=== PATIENT | female | born 1960 | race Caucasian/White ===

== ENCOUNTER 2020-06-25 00:24 | Outpatient (CLI) | payer BC, SELFPAY ==
[2020-06-25 19:34] LABS: SARS-CoV-2 RNA PCR Negative
== END 2020-06-25 00:25 | disposition home or self-care (01) ==
LOC: ANHCOVIDDT 00:24
PROVIDERS: PCP Family Medicine; Visit Provider Internal Medicine Gastroenterology
DX: Z01.812 Encounter for preprocedural laboratory examination (principal); Z20.828 Contact with and (suspected) exposure to other viral communicable diseases
CPT/HCPCS: 87635; C9803; U0003

== ENCOUNTER 2020-06-27 01:25 | Day surgery (SDC) | payer BC, SELFPAY ==
[2020-06-21 14:45] VITALS: BMI 23.6
--- NOTE | 2020-06-25 14:31 | WPDANESEPPF ---
Anes - Initial Pre Proc Eval Procedure: Operation Date: 06/27/20 09:30 Proposed Procedures p Esophagogastroduodenoscopy & Screening Colonoscopy - Noel Guardado MD Date/Time: 06/25/20 14:31 Surgeon: Noel Guardado MD Pre Op Diagnosis: neoplasm screening/ Dysphagia Patient Data Age: 60 Gender: F Height: 1.55 m Weight: 56.8 kg Allergies Allergy/AdvReac Type Severity Reaction Status Date / Time cevimeline Allergy Mild Asthma Verified 06/21/20 14:15 codeine Allergy Mild hallucinati Verified 06/21/20 14:15 on raloxifene AdvReac Mild Nausea Verified 06/21/20 14:15 Home Medications Medication Instructions Recorded Confirmed Type gabapentin 100 mg capsule 100 mg PO DAILY 10/06/19 06/21/20 History amlodipine 2.5 mg tablet 2.5 mg PO DAILY #90 tablet 01/09/20 06/21/20 Rx famotidine 40 mg tablet 40 mg PO BID #180 tablet 04/09/20 06/21/20 Rx imipramine HCl 10 mg tablet See Rx Instructions PO DAILY #120 05/24/20 06/21/20 Rx tablet lisinopril 2.5 mg tablet 5 mg PO DAILY #60 tablet 05/24/20 06/21/20 Rx meloxicam 15 mg PO DAILY PRN 06/21/20 06/21/20 History Patient hx anesthesia problems: none Family hx anesthesia problems: none PMFSH Past Medical History Medical History (Updated 06/25/20 @ 14:31 by Wicho Foreman DO) Asthma Atypical ductal hyperplasia of breast Endometriosis Eosinophilic esophagitis Fibromyalgia Hypertension Injury of left rotator cuff Neuropathy PONV (postoperative nausea and vomiting) Serrated adenoma of colon Social History Social History Smoking status: Never smoker Second hand tobacco smoke exposure: No Alcohol intake: current Anes - Eval Final PreProcedure Day of Procedure 06/25/20 14:31 Patient weight: normal Heart: regular rate and rhythm Lungs: clear to auscultation and normal air movement Airway: Mallampati scale class II Neurological: alert and oriented Last oral intake: >/= 8 hours ASA classification: III Emergent: no Anesthetic plan: proceed Anesthesia type and monitoring: general GIVS and standard monitoring Informed Consent: The patient's anesthetic plan and its attendant risks and benefits were discussed with the patient/family/POA. Questions were solicited and answers provided to the satisfaction of the patient/family/POA.
[2020-06-27 08:49] VITALS: BP 126/76; PULSE 88; RESP 16; TEMP 36.6; O2SAT 100; BMI 23.3
[2020-06-27] MEDS: LACTATED RINGERS 1,000 ML 150 ML IV CONT (09:01)
--- NOTE | 2020-06-27 09:18 | P.HP_ITS ---
History of Present Illness History of Present Illness Consent: Risks, benefits, and alternatives have been discussed and questions answered. Patient agrees to proceed with procedure. Chief complaint: neoplasm screening/ Dysphagia Narrative: Edyta Muhammad is a 60 year old W female Referred for gastroscopy and colonoscopy secondary to history of dysphagia he states this occurs approximately once a week with liquids or solids and points to the cervical region. He had a previous EGD 5 years ago there is suspicion for eosinophilic esophagitis but no significant eosinophilia recent exam. Heartburn is controlled with famotidine. She has not been on proton pump inhibitors in the past. She also has a history of connective tissue disorder. Sicca syndrome. Patient is also undergoing a colonoscopy for screening purposes. She has a history of serrated adenoma in the past however the last colonoscopy 5 years ago no polyps were visualized. There is no family history of colon polyps or colon cancer. [facility], LAT[facility] Past Medical History Medical History Asthma Atypical ductal hyperplasia of breast Endometriosis Eosinophilic esophagitis Fibromyalgia Hypertension Injury of left rotator cuff Neuropathy PONV (postoperative nausea and vomiting) Serrated adenoma of colon Social History Social History Smoking status: Never smoker Second hand tobacco smoke exposure: No Alcohol intake: current Meds Home Medications and Allergies Home Medications Medication Instructions Recorded Confirmed Type gabapentin 100 mg capsule 100 mg PO DAILY 10/06/19 06/21/20 History amlodipine 2.5 mg tablet 2.5 mg PO DAILY #90 tablet 01/09/20 06/21/20 Rx famotidine 40 mg tablet 40 mg PO BID #180 tablet 04/09/20 06/21/20 Rx imipramine HCl 10 mg tablet See Rx Instructions PO DAILY #120 05/24/20 06/21/20 Rx tablet lisinopril 2.5 mg tablet 5 mg PO DAILY #60 tablet 05/24/20 06/27/20 Rx meloxicam 15 mg PO DAILY PRN 06/21/20 06/27/20 History Allergies Allergy/AdvReac Type Severity Reaction Status Date / Time cevimeline Allergy Mild Asthma Verified 06/27/20 08:45 codeine Allergy Mild hallucinati Verified 06/27/20 08:45 on raloxifene AdvReac Mild Nausea Verified 06/27/20 08:45 Vital Signs Vital Signs - 24 hr 06/27/20 08:49 Temperature 36.6 C Pulse Rate 88 Respiratory Rate 16 Blood Pressure 126/76 Pulse Oximetry 100 Exam Const: Orientation/consciousness: patient oriented x3 Resp: Auscultation: clear to auscultation bilaterally Cardio: Rate: regular rate Rhythm: regular rhythm Heart sounds: no murmurs GI: GI Palp: Yes Soft to palpation, No Tenderness to palpation present (GI), Yes No hepatosplenomegaly present and No Palpable mass present Auscultation: normal bowel sounds Neuro: General: patient oriented x3 and no focal motor deficits Extrem: General: no pedal edema Assessment and Plan Additional Plan EGD for evaluation of dysphagia and screening colonoscopy secondary history of colonic polyps
[2020-06-27 10:35] VITALS: BP 115/81; PULSE 75; RESP 23; O2SAT 100
[2020-06-27 10:45] VITALS: BP 130/64; PULSE 79; RESP 16; O2SAT 100
[2020-06-27 10:55] VITALS: BP 121/70; PULSE 75; RESP 12; O2SAT 100
== END 2020-06-27 11:20 | disposition home or self-care (01) ==
PROVIDERS: PCP Family Medicine; Visit Provider Internal Medicine Gastroenterology
PROC: 0DJ08ZZ Inspection of Upper Intestinal Tract, Via Natural or Artificial Opening Endoscopic (ICD-10-PCS; CPT 43235; principal; 2020-06-27 09:30)
DX: Z12.11 Encounter for screening for malignant neoplasm of colon (principal); K57.30 Diverticulosis of large intestine without perforation or abscess without bleeding; K20.0 Eosinophilic esophagitis; K22.2 Esophageal obstruction; K44.9 Diaphragmatic hernia without obstruction or gangrene; Z86.010 Personal history of colon polyps; I10 Essential (primary) hypertension; J45.909 Unspecified asthma, uncomplicated; M79.7 Fibromyalgia; M35.00 Sjogren syndrome, unspecified; G62.9 Polyneuropathy, unspecified; Z79.899 Other long term (current) drug therapy
CPT/HCPCS: 43249; 43239; 45378; 88305; C1726; J2704; J7120

== ENCOUNTER → 2020-07-13 11:17 | Outpatient (CLI) | payer BC, SELFPAY ==
--- NOTE | ~2020-07-13 | MM_ITS ---
EXAMINATION: MM screening tamir BI w liban HISTORY: Screening TECHNIQUE: Craniocaudal and mediolateral oblique 3-D tomosynthesis images were obtained and synthetic 2-D images were generated. CAD analysis was submitted and interpreted. COMPARISON: No prior mammogram is available for comparison at this institution. BREAST PARENCHYMAL COMPOSITION: There are scattered areas of fibroglandular density. FINDINGS: The right breast is stable without evidence for malignancy. There are developing asymmetrie s in the left breast. IMPRESSION: 1. Developing left breast asymmetries. 2. Additional mammographic views and possible breast ultrasound are recommended. BI-RADS Category 0: Incomplete: Needs additional imaging evaluation. Reviewed, dictated and finalized at location A. IMPRESSION: 1. Developing left breast asymmetries. 2. Additional mammographic views and possible breast ultrasound are recommended . BI-RADS Category 0: Incomplete: Needs additional imaging evaluation.
== END ==
PROVIDERS: PCP Family Medicine; Visit Provider Family Medicine
DX: Z12.31 Encounter for screening mammogram for malignant neoplasm of breast (principal); R92.8 Other abnormal and inconclusive findings on diagnostic imaging of breast
CPT/HCPCS: 77063; 77067

== ENCOUNTER → 2020-07-13 11:51 | Outpatient (CLI) | payer BC, SELFPAY ==
--- NOTE | ~2020-07-13 | XR_ITS ---
EXAMINATION: XR lumbar spine min 4V EXAM DATE: 07/13/2020 13:19 INDICATION: Chronic low back pain. Right leg numbness for one month. TECHNIQUE: Lumber spine frontal, lateral, bilateral oblique projections. Coned down frontal and lat eral L5-S1 lumbar projections for interpretation. There is no prior study for comparison. FINDINGS: The vertebral bodies are aligned in the AP dimension. Vertebral body and disc heights are w ell-maintained. There is mild lumbar facet arthropathy. There are no acute fractures identified. No e ndplate erosive change. No spondylolysis. Sacrum, sacroiliac joints, sacral arcuate lines are intact. There are no bony erosions identified. IMPRESSION: Mild lumbar facet arthropathy. Reviewed, dictated and finalized at location A.
--- NOTE | ~2020-07-13 | XR_ITS ---
EXAMINATION: XR sacrum coccyx min 2V EXAM DATE: 07/13/2020 13:19 INDICATION: Chronic low back pain with right-sided radiculopathy. TECHNIQUE: Frontal and lateral projections of the sacrum and coccyx. There is no prior study for co mparison. FINDINGS: Sacrum, sacroiliac joints, sacral arcuate lines are intact. Symmetric sacroiliac joints wi thout erosion or fusion. The soft tissue is unremarkable. IMPRESSION: Unremarkable sacrococcygeal x-ray exam. Reviewed, dictated and finalized at location G.
== END ==
PROVIDERS: PCP Family Medicine; Visit Provider Chiropractor
DX: M54.5 Low back pain (principal)
CPT/HCPCS: 72110; 72220

== ENCOUNTER → 2020-07-31 14:16 | Outpatient (CLI) | payer BC, SELFPAY ==
--- NOTE | ~2020-07-31 | MMUS_ITS ---
EXAMINATION: MM diagnostic mammo unilat LT, US breast LT limited HISTORY: Focal asymmetry of the left breast on screening mammogram TECHNIQUE: Additional 3-D tomosynthesis images of the left breast were performed and synthetic 2-D im ages were generated. CAD analysis was submitted and interpreted. High resolution limited left breast ultrasound was performed. COMPARISON: 07/13/2020, 04/04/2019, 02/22/2018, 02/18/2017 FINDINGS: MAMMOGRAPHIC FINDINGS: There is a 6 mm oval, obscured, equal density mass in the anterior/middle third of the outer breast a t the 3:00 location 2 cm from the nipple. ULTRASOUND: There is a 6 mm x 3 mm oval, circumscribed, parallel, hypoechoic mass with no definite posterior feat ures or internal vascularity at the 3:00 location 1 cm from the nipple. There is an adjacent 5 mm x 3 mm oval, circumscribed, parallel, hypoechoic mass with angular margins, internal vascularity, and no posterior features. IMPRESSION: 1. Two masses of the left breast within 3 mm of each other at the 3:00 location. 2. Given their proximity, recommend biopsy of the mass with internal vascularity detected. BI-RADS category 4, suspicious findings. Reviewed, dictated and finalized at location A. IMPRESSION: 1. Two masses of the left breast within 3 mm of each other at the 3:00 location . 2. Given their proximity, recommend biopsy of the mass with internal vascularit y detected. BI-RADS category 4, suspicious findings.
== END ==
PROVIDERS: PCP Family Medicine; Visit Provider Family Medicine
DX: R92.8 Other abnormal and inconclusive findings on diagnostic imaging of breast (principal)
CPT/HCPCS: 76642; 77065

== ENCOUNTER 2020-08-06 10:40 | Outpatient (CLI) | payer BC, SELFPAY ==
--- NOTE | ~2020-08-06 | MMUS_ITS ---
US breast biopsy LT w image, MM post biopsy invasive LT 08/06/2020 11:47 (accession [id number]), 08/06/2020 11:51 (accession [id number]) EXAMINATION: US GUIDED NEEDLE BIOPSY WITH VACUUM ASSISTANCE DATE: 08/06/2020 11:52 CDT INDICATION: Left breast mass identified on recent examination. Ultrasound-guided core biopsy is requ ested to evaluate for malignancy. TECHNIQUE AND FINDINGS: The risks and potential benefits of the procedure were discussed with the patient, and written inform ed consent was obtained. After sterile preparation of the left breast, 1% lidocaine was utilized for local anesthesia. 1% lidocaine with epinephrine was used for deep anesthesia. A 10G vacuum-assisted biopsy gun needle was advanced through to the outer edge of the region of inter est from a superior lateral approach utilizing sonographic guidance. A total of three tissue core sa mples were obtained through the lesion. An Inrad tissue marker clip was then placed at the biopsy si te. Hemostasis was achieved. The patient tolerated procedure well and there was no evidence of immediate complication. The patien t was given verbal instructions partly is from the department. Left breast mammograms to document ti ssue marker clip placement. The tissue samples were submitted to surgical pathology for histologic an alysis.] IMPRESSION: 1. Successful ultrasound-guided vacuum-assisted biopsy of left breast mass in the upper outer quadra nt with tissue marker placement. Please refer to pathology report for histologic analysis. Reviewed, dictated and finalized at location A. IMPRESSION: 1. Successful ultrasound-guided vacuum-assisted biopsy of left breast mass in the upper outer quadrant with tissue marker placement. Please refer to patholog y report for histologic analysis.
== END 2020-08-06 10:41 | disposition home or self-care (01) ==
PROVIDERS: PCP Family Medicine; Visit Provider Family Medicine
DX: R92.8 Other abnormal and inconclusive findings on diagnostic imaging of breast (principal); N63.21 Unspecified lump in the left breast, upper outer quadrant; N64.89 Other specified disorders of breast
CPT/HCPCS: 19083; 88305; 88342

== ENCOUNTER 2021-04-16 17:31 | Emergency (ER) | payer BC, SELFPAY ==
[2021-04-16 17:35] VITALS: BP 126/77; PULSE 82; RESP 12; TEMP 36.4; O2SAT 100
--- NOTE | 2021-04-16 18:23 | ED.GENADULT ---
HPI - General Adult General Chief complaint: Shortness of Breath/Dyspnea Stated complaint: sob Time Seen by Provider: 04/16/21 18:23 Source: patient and RN notes reviewed Mode of arrival: ambulatory Limitations: no limitations History of Present Illness HPI narrative: 60-year-old female presents with complains of asthma attack and shortness of breath this morning at 02:00AM. Old Ventolin inhaler (from 2017) with relief. Denies any further episodes since initial episode. Denies cough and chest congestion. No rhinorrhea and nasal congestion. Denies sore throat. No high fevers, drooling, neck or throat swelling. No chest pain. No exacerbation factors. Denies nausea, vomiting, and abdominal pain. Tolerating liquids well. Remains active. The patient reports she was diagnosed with COVID-20 September 2020. The patient reports she is not waiting for the results of a COVID-19 lab test.? The patient reports she does not have chills, weakness, or fatigue. The patient reports she does not have any loss of taste or smell and diarrhea. Denies recent traveling.? Denies concerns for COVID-19 or exposures.? At this time, the patient is not suspected of having COVID-19. Some parts of this dictation were generated by voice recognition software and may contain typographical and/or grammatical inaccuracies. Related Data Home Medications Medication Instructions Recorded Confirmed meloxicam 15 mg PO DAILY PRN 06/21/20 04/16/21 Allergies Allergy/AdvReac Type Severity Reaction Status Date / Time cevimeline Allergy Mild Asthma Verified 06/27/20 08:45 codeine Allergy Mild hallucinati Verified 06/27/20 08:45 on raloxifene AdvReac Mild Nausea Verified 06/27/20 08:45 Review of Systems Review of Systems: Narrative: CONSTITUTIONAL: Denies fever, chills, sweats. EYES: Denies visual changes, redness, discharge. ENT: Denies rhinorrhea, congestion, sore throat, otalgia. CARDIOVASCULAR: Denies chest pain, palpitations, edema. RESPIRATORY: Denies cough. Complains of wheezing, dyspnea. GASTROINTESTINAL: Denies abdominal pain, nausea, vomiting, diarrhea. GENITOURINARY: Denies dysuria, hematuria, abnormal discharge. SKIN: Denies rash or itching. MUSCULOSKELETAL: Denies acute back pain, joint pain, or myalgia. NEUROLOGIC: Denies numbness or focal weakness. PSYCHIATRIC: Denies anxiety or depression. All systems reviewed & are unremarkable except as noted in HPI and below. [facility] Past Medical History Medical History (Updated 04/16/21 @ 19:32 by JOHNATHAN Sam) Asthma Atypical ductal hyperplasia of breast COVID-19 Depression Endometriosis Eosinophilic esophagitis Fibroadenosis of breast Fibromyalgia Hx of migraines Hypertension Injury of left rotator cuff Neuropathy Orthostasis PONV (postoperative nausea and vomiting) Schatzki's ring Serrated adenoma of colon Sicca syndrome Surgical History Surgical History (Updated 04/16/21 @ 19:32 by JOHNATHAN Sam) History of carpal tunnel surgery History of removal of cyst 2003 Bronchogenic cyst removed S/P dilatation of esophageal stricture Family History Family History Father Hypertension Family history of diabetes mellitus in first degree relative Patient's father is , Onset Age: 93 Diabetes mellitus Mother Hypertension Family history of mental disorder Patient's mother is , Onset Age: 89 Family history of dementia Family history of osteoarthritis Sibling Depression Hypertension Grandparent Diabetes mellitus Family history of malignant neoplasm Other Family history of malignant neoplasm of uterus Social History Social History (Updated 04/16/21 @ 19:27 by JOHNATHAN Sam) Smoking status: Never smoker Tobacco type: cigarettes Second hand tobacco smoke exposure: No Alcohol intake: former Alcohol use details: Edyta reports quitting alcohol intake
== END 2021-04-16 19:05 | disposition home or self-care (01) ==
PROVIDERS: Emergency Provider Nurse Practitioner Family; PCP Family Medicine
DX: J45.20 Mild intermittent asthma, uncomplicated (principal); Z86.16 Personal history of COVID-19; N80.9 Endometriosis, unspecified; K20.0 Eosinophilic esophagitis; M79.7 Fibromyalgia; I10 Essential (primary) hypertension; M35.00 Sjogren syndrome, unspecified
CPT/HCPCS: 99213; G0463

== ENCOUNTER → 2021-07-25 09:15 | Outpatient (CLI) | payer BC, SELFPAY ==
--- NOTE | ~2021-07-25 | MM_ITS ---
EXAMINATION: MM diagnostic tamir BI w liban HISTORY: Recent benign left breast biopsy. TECHNIQUE: ML, MLO and craniocaudal 3-D tomosynthesis images of both breasts were performed [facility]. CAD analysis was submitted and interpreted. COMPARISON: 07/31/2020 diagnostic left mammogram and limited left breast ultrasound 07/13/2020, 623/2018, 02/22/2018, 02/18/2017bilateral digital screening mammogram examinations BREAST PARENCHYMAL COMPOSITION: The breasts are heterogeneously dense, which may obscure small masses . FINDINGS: Surgical clips are noted on the right. Biopsy marker is noted on left. History of bilateral benign breast biopsies. No suspicious mass or architectural distortion, malignant calcification, skin thickening or retractio n or significant new or developing density is detected. IMPRESSION: 1. No mammographic evidence of malignancy 2. Routine mammographic screening is recommended. BI-RADS Category 2: Benign finding(s). Reviewed, dictated and finalized at location A.
== END ==
PROVIDERS: PCP Family Medicine; Visit Provider Family Medicine
DX: N60.99 Unspecified benign mammary dysplasia of unspecified breast (principal); R92.2 Inconclusive mammogram
CPT/HCPCS: 77062; 77066; G0279

== ENCOUNTER → 2022-06-17 02:35 | Outpatient (CLI) | payer BC, SELFPAY ==
[2022-06-17 11:04] LABS: SARS-CoV-2 RNA PCR Positive
== END ==
PROVIDERS: PCP Family Medicine; Visit Provider Family Medicine
DX: U07.1 COVID-19 (principal)
CPT/HCPCS: C9803; U0003; U0005

== ENCOUNTER 2022-07-11 09:10 | Outpatient (CLI) | payer BC, SELFPAY ==
--- NOTE | ~2022-07-11 | DEXA_ITS ---
Bone Density Report Name: JASPER DEWITT Age: 62 Sex: Female Ethnicity: White Date of : 1960 Indication: postmenopausal; screening for osteoporosis; asthma or emphysema; Referring Provider: ELÍAS PADRON Study: Bone densitometry was performed. Exam Date: July 11, 2022 Accession number: [id number] Bone Density: Region BMD T-score Z-score Classification AP Spine(L1-L4) 0.927 -1.1 0.4 Osteopenia Femoral Neck (Left) 0.721 -1.2 0.2 Osteopenia Total Hip (Left) 0.925 -0.1 0.9 Normal Femoral Neck (Right) 0.766 -0.7 0.6 Normal Total Hip (Right) 0.967 0.2 1.2 Normal Total Hip Mean 0.946 0.1 1.1 Normal World Health Organization criteria for BMD impression classify patients as: Normal (T-score at or above -1.0), Osteopenia (T-score between -1.0 and -2.5), or Osteoporosis (T-score at or below -2.5). 10-year Fracture Risk(1): Major Osteoporotic Fracture 6.7% Hip Fracture 0.5% Reported Risk Factors: [place] (), Neck BMD=0.721, BMI=20.7 (1) FRAX(R) Version 3.08. Fracture probability calculated for an untreated patient. Fracture probability may be lower if the patient has received treatment. Clinical Information Provided by Patient: Has used the following medications: Calcium Has the following medical conditions: Asthma or Emphysema Patient maximum height was 62 Menopause Age: 49 Drinks caffeinated beverages Onset of menses at age 13 Number of children 3 Impression: The patient has low bone mass, based on the Left Femoral Neck T-score. The patient has an estimated ten-year risk of hip fracture of 0.5% and an estimated ten-year risk of major fracture of 6.7%, based on the WHO FRAX algorithm. Discussion: BONE DENSITY IS LOW AT ONE OR MORE SKELETAL SITES. This patient's lowest T-score is low at one or more skeletal sites. It meets the World Health Organization's (WHO) criteria for ?low bone mass? (T-score between -1.0 and -2.5). The patient's 10-year risk of fracture as calculated by FRAX is less than the threshold where pharmacological therapy is recommended by the National Osteoporosis Foundation (NOF). However, all treatment decisions require clinical judgment and consideration of individual patient factors, including patient preferences, comorbidities, previous drug use, risk factors not captured in the FRAX model (e.g., frailty, falls, vitamin D deficiency, increased bone turnover, interval significant decline in bone density) and possible under or overestimation of fracture risk by FRAX. The patient should follow a healthful lifestyle (good nutrition with adequate calcium and vitamin D, and appropriate weight-bearing exercise). Follow-Up: Consider repeating this study in 2 to 3 years to reassess this patient's status, or sooner if there is some new clinical
== END 2022-07-11 09:11 | disposition home or self-care (01) ==
LOC: ANHIMG 09:11
PROVIDERS: PCP Family Medicine; Visit Provider Family Medicine
DX: Z13.820 Encounter for screening for osteoporosis (principal); Z78.0 Asymptomatic menopausal state; M85.88 Other specified disorders of bone density and structure, other site; M85.852 Other specified disorders of bone density and structure, left thigh
CPT/HCPCS: 77080

== ENCOUNTER → 2022-09-23 13:47 | Outpatient (CLI) | payer BC, SELFPAY ==
--- NOTE | ~2022-09-23 | MM_ITS ---
EXAMINATION: MM screening tamir BI w liban HISTORY: Screening mammogram TECHNIQUE: Craniocaudal and mediolateral oblique 3-D tomosynthesis images were obtained and synthetic 2-D images were generated. CAD analysis was submitted and interpreted. COMPARISON: 07/25/2021 bilateral diagnostic mammography 08/06/2020 left ultrasound guided biopsy 07/31/2020 diagnostic left mammogram and limited left breast ultrasound 07/13/2020, 04/04/2019, 02/22/2018 bilateral screening mammogram examinations BREAST PARENCHYMAL COMPOSITION: The breasts are heterogeneously dense, which may obscure small masses . FINDINGS: Multiple surgical clips are noted on the right from prior reportedly benign biopsy. Biopsy marker in the outer mid left breast; reported benign left breast biopsy on 08/06/2020. There is no evidence of suspicious mass, calcification, or architectural distortion to suggest malig betty in either breast. There has been no suspicious interval change. IMPRESSION: 1. No mammographic evidence of malignancy. 2. Recommend routine screening mammography in one year. BI-RADS Category 1: Negative Reviewed, dictated and finalized at location A. O FINISH PHOTOGRAPHER
== END ==
PROVIDERS: PCP Family Medicine; Visit Provider Physician Assistant
DX: Z12.31 Encounter for screening mammogram for malignant neoplasm of breast (principal)
CPT/HCPCS: 77063; 77067

== ENCOUNTER → 2023-10-13 10:58 | Outpatient (CLI) | payer BC, SELFPAY ==
--- NOTE | ~2023-10-13 | MM_ITS ---
EXAMINATION: MM screening tamir BI w liban HISTORY: Screening TECHNIQUE: Craniocaudal and mediolateral oblique 3-D tomosynthesis images were obtained and synthetic 2-D images were generated. CAD analysis was submitted and interpreted. COMPARISON: Comparison to multiple prior studies sequentially, with oldest reviewed study dated 12/2018. BREAST PARENCHYMAL COMPOSITION: Breast composed of scattered areas of fibroglandular density FINDINGS: There are biopsy changes in both breasts consistent with previous benign bilateral breast b iopsies. There is no evidence of suspicious mass, calcification, or architectural distortion to sugge st malignancy in either breast. There has been no suspicious interval change. IMPRESSION: 1. No mammographic evidence of malignancy. 2. Recommend routine screening mammography in one year. BI-RADS Category 1: Negative Reviewed, dictated and finalized at location A. ER TECHNICIAN
== END ==
PROVIDERS: PCP Family Medicine; Visit Provider Family Medicine
DX: Z12.31 Encounter for screening mammogram for malignant neoplasm of breast (principal)
CPT/HCPCS: 77063; 77067

== ENCOUNTER 2024-08-09 13:26 | Outpatient (CLI) | payer BC, SELFPAY ==
[2024-08-16 07:39] LABS: XViral Resp Rapid Cult w/Reflx Negative
== END 2024-08-09 13:27 | disposition home or self-care (01) ==
LOC: ANHGOSHLAB 13:28
PROVIDERS: PCP Family Medicine; Visit Provider Nurse Practitioner Family
DX: R05.9 Cough, unspecified (principal)
CPT/HCPCS: 87254

== ENCOUNTER 2024-09-20 08:36 | Outpatient (CLI) | payer BC, SELFPAY ==
--- NOTE | ~2024-09-20 | MM_ITS ---
EXAMINATION: MM screening tamir BI w liban HISTORY: Screening mammogram TECHNIQUE: Craniocaudal and mediolateral oblique 3-D tomosynthesis images were obtained and synthetic 2-D images were generated. CAD analysis was submitted and interpreted. COMPARISON: 10/13/2023, 09/23/2022, 07/25/2021 BREAST PARENCHYMAL COMPOSITION:Dense: The breasts are heterogeneously dense, which may obscure small masses. FINDINGS: No suspicious mass, calcification, or architectural distortion are identified in either nitin ast to suggest malignancy. There has been no suspicious interval change. IMPRESSION: No mammographic evidence of malignancy. Recommend routine screening mammography in one year. BI-RADS Category 1: Negative Reviewed, dictated and finalized at location . GE OVER
== END 2024-09-20 08:37 | disposition home or self-care (01) ==
LOC: MICIMG 08:36
PROVIDERS: PCP Family Medicine; Visit Provider Family Medicine
DX: Z12.31 Encounter for screening mammogram for malignant neoplasm of breast (principal)
CPT/HCPCS: 77063; 77067

== ENCOUNTER 2024-09-23 12:35 | Outpatient (CLI) | payer BC, SELFPAY ==
--- NOTE | ~2024-09-23 | CT_ITS ---
EXAMINATION: CT soft tiss nk chst ab pel w DATE: 09/23/2024 13:09 INDICATION: Abdominal distention (gaseous). TECHNIQUE: Computed tomography (CT) of the neck, chest, abdomen, and pelvis was performed with 100 mL Omnipaque 350 intravenous contrast. Automated exposure control and iterative reconstruction techniqu e were employed. The dose-length product was 1429.41 mGy-cm. COMPARISON: CT abdomen and pelvis 02/27/2015 FINDINGS: NECK CT: There are no pathologically enlarged lymph nodes. There is no visible plaque in the proximal internal carotid arteries. There is severe cervical spondylosis. There is a benign bone island in C7 vertebra l body. CHEST CT: There is mild scarring at the lung apices. There is mild atelectasis in right middle lobe. No pleural effusion. The heart size is normal. No pericardial effusion. There is mild thoracic spondylosis. ABDOMEN/PELVIS CT: The liver, gallbladder, spleen, pancreas, adrenal glands, and kidneys are normal. 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 The bladder is distended. There are no dilated loops of bowel. There is a large volume stool in the c olon. The appendix is normal. There are no pathologically enlarged lymph nodes. There is no free intr aperitoneal fluid. There are 2.2 cm and 2.1 cm cysts in the left adnexa, likely benign. There is linsey re lumbar spondylosis. IMPRESSION: 1. Large volume of stool in the colon. Reviewed, dictated and finalized at location A. ONNEL SECURITY SPECIALIST
[2024-09-23 13:00] LABS: Estimated Glomerular Filt Rate > 60
== END 2024-09-23 12:36 | disposition home or self-care (01) ==
PROVIDERS: PCP Family Medicine; Visit Provider Nurse Practitioner Family
DX: K56.41 Fecal impaction (principal); R14.0 Abdominal distension (gaseous)
CPT/HCPCS: 70491; 71260; 74177; Q9967

== ENCOUNTER 2024-10-13 01:47 | Day surgery (SDC) | payer BC, SELFPAY ==
[2024-10-03 16:09] VITALS: BMI 22.4
[2024-10-13 06:56] VITALS: BP 146/88; PULSE 81; RESP 18; TEMP 36.2; O2SAT 100
[2024-10-13] MEDS: LACTATED RINGERS 1,000 ML 150 ML IV CONT (07:09)
--- NOTE | 2024-10-13 07:51 | WPDANESEPPF ---
Anes - Initial Pre Proc Eval Procedure: Operation Date: 10/13/24 08:00 Proposed Procedures p Esophagogastroduodenoscopy & Colonoscopy - Sang Islas MD Date/Time: 10/13/24 07:51 Surgeon: Sang Islas MD Pre Op Diagnosis: HX of colon polyps, dysphagia Patient Data Age: 64 Gender: F Height: 1.55 m Weight: 52.6 kg Last Vital Signs Temp 97.2 F L 10/13/24 06:56 Pulse 81 10/13/24 06:56 Resp 18 10/13/24 06:56 BP 146/88 H 10/13/24 06:56 Pulse Ox 100 10/13/24 06:56 O2 Del Method Room Air 10/13/24 06:56 Allergies Allergy/AdvReac Type Severity Reaction Status Date / Time cevimeline Allergy Mild Asthma Verified 10/13/24 06:54 codeine AdvReac Mild hallucinati Verified 10/13/24 06:54 on raloxifene AdvReac Mild Nausea Verified 10/13/24 06:54 Home Medications ?Medication ?Instructions ?Recorded ?Confirmed ?Type meloxicam 15 mg tablet 15 mg PO DAILY PRN Pain, Mild 06/21/20 10/13/24 History valacyclovir 1 gram tablet 2,000 mg (2 x 1 gram) PO Q12H #24 09/29/22 10/03/24 Rx (Valtrex) tabs pilocarpine HCl 5 mg tablet 5 mg PO DAILY PRN Dry Mouth 11/13/22 10/13/24 History amlodipine 2.5 mg tablet See Rx Instructions .Route 10/29/23 10/03/24 Rx .COMPLEX #90 tabs pantoprazole 40 mg tablet,delayed See Rx Instructions .Route 10/29/23 10/13/24 Rx release .COMPLEX #90 tabs imipramine HCl 10 mg tablet See Rx Instructions .Route 02/25/24 10/13/24 Rx .COMPLEX #360 tabs gabapentin 100 mg capsule 300 mg (3 x 100 mg) PO DAILY #90 05/03/24 10/13/24 Rx caps lisinopril 2.5 mg tablet 2.5 mg PO DAILY #90 tabs 07/25/24 10/03/24 Rx albuterol sulfate 90 mcg/actuation See Rx Instructions .Route 08/11/24 10/13/24 Rx aerosol inhaler .COMPLEX ##8.5 Patient hx anesthesia problems: none Family hx anesthesia problems: none Results Review: All pre-operative results and documents have been reviewed as part of the pre-operative evaluation. [facility] Past Medical History Medical History Asthma Atypical ductal hyperplasia of breast COVID-19 Depression Endometriosis Eosinophilic esophagitis Fibroadenosis of breast Fibromyalgia Hx of migraines Hypertension Injury of left rotator cuff Neuropathy Orthostasis Osteopenia after menopause PONV (postoperative nausea and vomiting) Schatzki's ring Serrated adenoma of colon Sicca syndrome Surgical History Surgical History History of carpal tunnel surgery History of removal of cyst 2003 Bronchogenic cyst removed S/P dilatation of esophageal stricture Family History Family History Father , age 93 Hypertension Diabetes mellitus Mother , age 89 Hypertension Family history of mental disorder Family history of dementia Family history of osteoarthritis Arthritis Sibling Depression Hypertension Sleep apnea Grandparent Diabetes mellitus Family history of malignant neoplasm Other Family history of malignant neoplasm of uterus Social History Social History Social History: Caffeine- coffee daily Smoking status: Never smoker Tobacco type: cigarettes Second hand tobacco smoke exposure: No Alcohol intake: former Alcohol use details: Edyta reports quitting alcohol intake Substance use: never Substance use type: does not use Lack of Transportation: No Lack of Food: Never True Current Housing: I Have Housing Concerned About Future Housing: No Difficulty Paying Gas/Electric Bills: No Difficulty Paying for Meds: No Currently Unemployed: No Education: Bachelor's Degree Difficulty w/ Childcare or Family Care: No Living arrangements: with family Occupation/Education: occupation Gender identity (if verbalized by the patient): Female Spiritual care concerns: No Anes - Eval Final PreProcedure Day of Procedure 10/13/24 07:51 Patient weight: normal Heart: regular rate and rhythm Lungs: clear to auscultation Neurological: alert and oriented Last oral intake: >/= 8 hours Emergent: no Anesthetic plan: proceed Anesthesia type and monitoring: general GIVS and standard monitoring Results Review: All pre-operative results and documents have been reviewed as part of the pre-operative evaluation. Informed Consent: The patient's anesthetic plan and its attendant risks and benefits were discussed with the patient/family/POA. Questions were solicited and answers provided to the satisfaction of the patient/family/POA.
--- NOTE | 2024-10-13 07:54 | PM.IMHP ---
H&P: HPI History of Present Illness Date/Time: 10/13/24 07:54 Chief Complaint: Dysphagia-history of colon polyps. Narrative: The patient has a history of intermittent dysphagia, and her last endoscopy was in June 2020, finding a Schatzki ring which was dilated with an 18 mm balloon. In addition, esophageal biopsies revealed more than 30 eosinophils per high-power field, making that diagnosis of eosinophilic esophagitis. She did well for approximately 2 years but approximately 1 year ago she started to have dysphagia again. In addition, on the same date she underwent a colonoscopy which did not show colonic polyps, however she had polyps in previous colonoscopy. She is here for EGD and colonoscopy. Review of Systems Review of Systems: All systems reviewed & are unremarkable except as noted in HPI and below PMFSH Past Medical History Medical History Asthma Atypical ductal hyperplasia of breast COVID-19 Depression Endometriosis Eosinophilic esophagitis Fibroadenosis of breast Fibromyalgia Hx of migraines Hypertension Injury of left rotator cuff Neuropathy Orthostasis Osteopenia after menopause PONV (postoperative nausea and vomiting) Schatzki's ring Serrated adenoma of colon Sicca syndrome Surgical History Surgical History History of carpal tunnel surgery History of removal of cyst 2003 Bronchogenic cyst removed S/P dilatation of esophageal stricture Family History Family History Father , age 93 Hypertension Diabetes mellitus Mother , age 89 Hypertension Family history of mental disorder Family history of dementia Family history of osteoarthritis Arthritis Sibling Depression Hypertension Sleep apnea Grandparent Diabetes mellitus Family history of malignant neoplasm Other Family history of malignant neoplasm of uterus Social History Social History Social History: Caffeine- coffee daily Smoking status: Never smoker Tobacco type: cigarettes Second hand tobacco smoke exposure: No Alcohol intake: former Alcohol use details: Edyta reports quitting alcohol intake Substance use: never Substance use type: does not use Lack of Transportation: No Lack of Food: Never True Current Housing: I Have Housing Concerned About Future Housing: No Difficulty Paying Gas/Electric Bills: No Difficulty Paying for Meds: No Currently Unemployed: No Education: Bachelor's Degree Difficulty w/ Childcare or Family Care: No Living arrangements: with family Occupation/Education: occupation Gender identity (if verbalized by the patient): Female Spiritual care concerns: No Meds Home Medications and Allergies Home Medications ?Medication ?Instructions ?Recorded ?Confirmed ?Type meloxicam 15 mg tablet 15 mg PO DAILY PRN Pain, Mild 06/21/20 10/13/24 History valacyclovir 1 gram tablet 2,000 mg (2 x 1 gram) PO Q12H #24 09/29/22 10/03/24 Rx (Valtrex) tabs pilocarpine HCl 5 mg tablet 5 mg PO DAILY PRN Dry Mouth 11/13/22 10/13/24 History amlodipine 2.5 mg tablet See Rx Instructions .Route 10/29/23 10/03/24 Rx .COMPLEX #90 tabs pantoprazole 40 mg tablet,delayed See Rx Instructions .Route 10/29/23 10/13/24 Rx release .COMPLEX #90 tabs imipramine HCl 10 mg tablet See Rx Instructions .Route 02/25/24 10/13/24 Rx .COMPLEX #360 tabs gabapentin 100 mg capsule 300 mg (3 x 100 mg) PO DAILY #90 05/03/24 10/13/24 Rx caps lisinopril 2.5 mg tablet 2.5 mg PO DAILY #90 tabs 07/25/24 10/03/24 Rx albuterol sulfate 90 mcg/actuation See Rx Instructions .Route 08/11/24 10/13/24 Rx aerosol inhaler .COMPLEX ##8.5 Allergies Allergy/AdvReac Type Severity Reaction Status Date / Time cevimeline Allergy Mild Asthma Verified 10/13/24 06:54 codeine AdvReac Mild hallucinati Verified 10/13/24 06:54 on raloxifene AdvReac Mild Nausea Verified 10/13/24 06:54 Vital Signs Vital Signs - 24 hr 10/13/24 06:56 Temperature 97.2 F L Pulse Rate 81 Respiratory Rate 18 Blood Pressure 146/88 H Pulse Oximetry 100 Oxygen Delivery Room Air Exam Const: General: cooperative and healthy appearing Resp: Effort & Inspection: normal respiratory effort and able to speak in complete sentences Auscultation: clear to auscultation bilaterally Cardio: Rate: regular rate Rhythm: regular rhythm GI: Inspection: normal to inspection GI Palp: No No hepatosplenomegaly present Auscultation: normal bowel sounds Rectal Exam: deferred Skin: General skin exam: normal color Psych: Appearance: grossly normal Mental Status: mental status grossly normal Assessment and Plan Assessment and plan (1) Esophagitis, unspecified: Code(s): K20.9 - Esophagitis, unspecified Status: Acute (2) Serrated adenoma of colon: Code(s): D12.6 - Benign neoplasm of colon, unspecified Status: Acute (3) Schatzki's ring: Code(s): K22.2 - Esophageal obstruction Status: Acute (4) S/P dilatation of esophageal stricture: Code(s): Z98.890 - Other specified postprocedural states; Z87.19 - Personal history of other diseases of the digestive system Status: Acute (5) Dysphagia: Qualifiers: Dysphagia type: other dysphagia Qualified Code(s): R13.19 - Other dysphagia Code(s): R13.10 - Dysphagia, unspecified Status: Acute (6) Eosinophilic esophagitis: Code(s): K20.0 - Eosinophilic esophagitis Status: Acute (7) Personal history of colonic polyps: Code(s): Z86.0100 - Personal history of colon polyps, unspecified Status: Acute Plan The patient is deemed a good candidate for the procedures. If a Schatzki ring is found we will proceed with dilation up to 20 mm. Esophageal biopsies will be obtained to assess eosinophilic esophagitis progression or current status. Consent signed. Will proceed.
--- NOTE | 2024-10-13 08:18 | SUR.OPER ---
EGD [id number]. Colonoscopy start time 08.
[2024-10-13 08:44] VITALS: BP 153/67; PULSE 80; RESP 15; O2SAT 100
[2024-10-13 08:54] VITALS: BP 146/79; PULSE 81; RESP 16; O2SAT 100
[2024-10-13 09:04] VITALS: BP 145/82; PULSE 78; RESP 14; O2SAT 100
[2024-10-13 09:14] VITALS: BP 150/80; PULSE 72; RESP 16; O2SAT 100
[2024-10-13 09:24] VITALS: BP 139/83; PULSE 75; RESP 14; O2SAT 100
[2024-10-13] MEDS: SIMETHICONE ORAL SUSPENSION 20 MG/0.3 ML 30 ML BOTTLE BY MOUTH (09:41)
--- NOTE | 2024-10-13 09:46 | SUR.PHASEII ---
0844 Pt c/o pain to abdomen, moaning and states pain 4/. Dr. Islas to bedside shortly after pt arrived to post-op. Abdomen soft, but tender. Warm blanket applied to abdomen. Drinking water well. 0900 Pt ambulated to bathroom and pinto. Continues to c/o of pain 4/10, radiating to left shoulder. Pt sat on toilet with no relief. Abdomen bloated, but soft and tender. Pt placed back in bed with a warm blanket to abdomen. 0915 Pt repositioned in bed. Pain 4.07/12 0930 Pt continues to c/o of pain. Dr. Islas brought to bedside to assess. Abdomen continues to be soft and tender to left side. Simethicone ordered. 0940 Pt given simethicone, states pain is improving. Pt stated has h/o fibromyalgia, but did not take her medication this morning. She believes this may be one reason she is having increased pain.
== END 2024-10-13 10:00 | disposition home or self-care (01) ==
PROVIDERS: PCP Family Medicine; Referring Provider Nurse Practitioner Family; Visit Provider Internal Medicine Gastroenterology
PROC: 0DJ08ZZ Inspection of Upper Intestinal Tract, Via Natural or Artificial Opening Endoscopic (ICD-10-PCS; CPT 43235; principal; 2024-10-13 08:00)
DX: Z12.11 Encounter for screening for malignant neoplasm of colon (principal); K64.1 Second degree hemorrhoids; K22.2 Esophageal obstruction; K20.90 Esophagitis, unspecified without bleeding; K44.9 Diaphragmatic hernia without obstruction or gangrene; Z86.0100 Personal history of colon polyps, unspecified; Z79.51 Long term (current) use of inhaled steroids
CPT/HCPCS: 45378; 43249; 88305; C1726; J2003; J2704; J7120

== ENCOUNTER 2025-05-31 00:32 | Day surgery (SDC) | payer BC, SELFPAY ==
--- OUTSIDE RECORDS SUMMARY | 2024-12-28 01:05 | XMS_ITS | Referral Summary ---
Author Organization [facility] Address [address] [address] Care Team Providers Care Continuous Linter Drier Operator Name Role Phone Tim Harris MD Primary Care Provider [phone]- [phone] Source Comments [facility],non-owned Affiliates and Associated Physician Practices is amultiple site organization consisting of ambulatory clinics and hospital sitesin [place], [place], [place] and [place]. This disclosure is being madepursuant to the Care Everywhere program and may not contain all information available regarding this patient. Last updated 18.[facility] Encounters Date Type Department Care Team Description 11/30/2024 Travel 11/30/2024 Telephone [facility] - MOTION STUDY ANALYST [address] [place] [address] Lluvia Bonner MD Nurse Only 11/30/2024 10:30 AM SUBJECT SCIENTIFIC RESEARCH Office Visit [facility] - MOTION STUDY ANALYST [address] [place] [address] Jerri Bhat MD Vulvodynia (Primary Dx); Menopausal vaginal dryness; Dyspareunia in female 11/21/2024 Travel 11/21/2024 11:20 AM SUBJECT SCIENTIFIC RESEARCH Office Visit [facility] - Rheumatology [address] [place] [address] Carmen Carlton MD Sicca syndrome (HCC) (Primary Dx); Histone antibody positive; Fibromyalgia; Carpal tunnel syndrome of left wrist 11/16/2024 Orders Only [facility] - Rheumatology [address] [facility] [place] [phone] Carmen Carlton MD 11/10/2024 Refill [facility] - Rheumatology [address] [place] [address] Carmen Carlton MD Refill Request 09/27/2024 Travel 09/27/2024 11:30 AM SUBJECT SCIENTIFIC RESEARCH Office Visit [facility] - MOTION STUDY ANALYST [address] [place] [address] Lluvia Bonner MD Urinary retention (Primary Dx); Vulvodynia; Dysuria from Last 3 Months Allergies Active Allergy Reactions Criticality Noted Date Comments Adhesive Sensitivity Rash Medium 08/12/2016 Codeine Nausea and/or Vomiting Low 08/12/2016 Hydrocod Polst-Cpm Polst Er Psychiatric Medium 015 Midazolam Nausea and/or Vomiting Low 08/12/2016 Tussionex Pennkinetic Er Unknown 03/18/2018 Medications * Be aware that medications may not be up to date on this document. Alwaysverify current medications with the patient. Medication Sig Dispensed Refills Start Date End Date Status Xoylzwm-Hnyqnalve-Pb nc 167-83-8 MG Take 1 tablet by mouth every other day Active albuterol HFA (PROVENTIL;VENTOLIN; PROAIR) 108 (90 BASE) MCG/ACT inhaler Inhale 2 (two) puffs by mouth as needed Active Cyanocobalamin (VITAMIN B 12) 100 MCG Take 1 tablet by mouth every other day Active Multiple Vitamin Take 1 (one) tablet by mouth every other day Active Probiotic Product (ACIDOPHILUS/GOAT MILK) CAPS Take 1 tablet by mouth Active lisinopril (PRINIVIL; ZESTRIL) 2.5 MG tablet Take 1 (one) tablet by mouth once daily 01/27/2019 Active amLODIPine (NORVASC) 2.5 MG tablet Take 1 (one) tablet by mouth at bedtime 11/08/2019 Active estradiol (ESTRACE VAGINAL) 0.1 MG/GM vaginal cream Please compound 0.15 mg/g estradiol vagina cream in a versa base. Patient to use a pea size amount to urethra 3 x week 45 g 1 04/27/2020 Active pantoprazole EC (PROTONIX) 40 MG tablet 07/27/2021 Active gabapentin (NEURONTIN) 100 MG capsuleIndications:V ulvodynia TAKE 3 (THREE) CAPSULES BY MOUTH AT BEDTIME 90 capsule 03/03/2022 Active PEPPERMINT OIL PO Active imipramine (Tofranil) 10 MG tablet Take 4 (four) tablets by mouth at bedtime Active pilocarpine HCl (Salagen) 5 MG tablet Take 1 (one) tablet by mouth 3 times daily 270 tablet 1 04/22/2024 Active magnesium gluconate 500 (27 Mg) MG tablet Take 1 (one) tablet by mouth once daily Active meloxicam (Mobic) 15 MG tabletIndications:Hi stone antibody positive,Sicca syndrome (HCC),Encounter for therapeutic drug monitoring,Encounter for long-term (current) use of high-risk medication,Fibromyal kenyon TAKE 1 TABLET BY MOUTH ONCE DAILY NEEDED 30 tablet 5 11/10/2024 Active cranberry (Cranberry) 400 MG tablet Take 1 (one) tablet by mouth once daily Active Active Problems Problem Noted Date Diagnosed Date Dysuria 09/01/2024 Assessment & Plan (09/27/2024 11:59 AM SUBJECT SCIENTIFIC RESEARCH): - resolved as of 09/27/2024. Denies current symptoms of UTI. Generalized malaise and flu-like symptoms have resolved as well. Given absence of symptoms, no UA obtained 09/27/2024 Assessment & Plan (09/02/2024 12:39 PM CDT): - UA 09/01/24 without evidence of urinary tract infection (despite recently positive home test and persistent UTI symptoms despite recent round of empiric tx with macrobid by PCP) - standing UA order placed. Pt instructed to call office with next UTI symptoms and provide urine sample at [facility] lab. Requisition slip given to patient. 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 Visually reviewed report of CT A/P in clinic off patient's phone and kidneys appeared normal. Therefore, no need for renal US at this time. - BMP ordered 09/27/2024 - recommended completion of urodynamics and cystoscopy with plan for CIC teaching at that appointment if PVR remained elevated. However, pt expressed reluctance to complete extensive workup. - discussed potential harm that chronically elevated PVRs pose. Pt stated understanding. - she expressed concern that cystocele may be contributing to incomplete emptying. Discussed how extent of prolapse witnessed at new patient visit was mild enough that it unlikely prohibited voiding. However, explained that we could complete a trial with pessary to see if prolapse reduction improved voiding function. - after counseling and discussion on management options, patient desires to follow up in 1 month via telehealth to discus once she has had time to think about her options. to return for urodynamics and cystoscopy. Plan to teach CIC at this appointment if continues to have elevated PVR. Assessment & Plan (09/02/2024 12:40 PM CDT): - PVR (09/01/2024): 220mL. Pt reports subjective symptoms of incomplete bladder emptying. - RTC 1 month for repeat PVR. If repeat PVR still elevated, would initiate workup with urodynamics and cysto as next steps. Urethral caruncle 09/01/2024 Assessment & Plan (09/27/2024 11:59 AM SUBJECT SCIENTIFIC RESEARCH): - continue vaginal estrogen - pt may call if desires surgical removal Assessment & Plan (09/01/2024 3:53 PM CDT): - on estrace three times weekly. Despite estrogen treatment, still with significant caruncle. Painful during intercourse. Not ready for surgical intervention at this time. Informed pt of option for surgical correction. Cystocele with prolapse 09/01/2024 Assessment & Plan (09/02/2024 12:39 PM CDT): Pelvic Organ Prolapse: We reviewed this patient's particular anatomy with her with the assistance of anatomic diagrams. We discussed the treatment options for prolapse including conservative management, pessary and surgical management. Given that she is asymptomatic at this time, she elected observation. She was provided with written information regarding the different options. She was encouraged to make a f/u appointment should her symptoms become bothersome enough for her to desire treatment. 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 (AF LURIA, FLUZONE TRIVALENT; 6MO+) (IIV3) 07/18/2013 INFLUENZA VACCINE 08/02/2018 TDAP (7yrs+) 07/18/2013 iNFLUENZA VACCINE, RECOM-BROWN, QUADR. (FLUBLOCK QUADRIVALENT; 18Y+) (RIV4) 09/04/2020 Social History Tobacco Use Types Packs/Day Years Used Date Smoking Tobacco: Never Smokeless Tobacco: Never Tobacco Cessation:Counseling Given: Not Answered Alcohol Use Standard Drinks/Week Comments Yes 1 (1 standard drink = 0.6 oz pur e alcohol) monthly AUDIT-C Answer Date Recorded Q1: How often do you have a drink containing alc ohol? Never 07/10/2020 Average Number of Drinks Not on file 020 Q3: How often do you have si x or more drinks on one occasion? Not asked 07/10/2020 PHQ-2 Answer Date Recorded Patient Health Questionnaire-2 Score 0 11/29/2024 Sex and Gender Information Value Date Recorded Sex Assigned at Not on file Gender Identity Not on file Sexual Orientation Not on file Last Filed Vital Signs Vital Sign Reading Time Taken Comments Blood Pressure 122/74 11/30/2024 10:16 AM SUBJECT SCIENTIFIC RESEARCH Pulse 94 11/30/2024 10:16 AM SUBJECT SCIENTIFIC RESEARCH Temperature 36.6 C (97.8 F) 11/21/2024 10:56 AM SUBJECT SCIENTIFIC RESEARCH Respiratory Rate 16 09/02/2021 11:34 AM CDT Oxygen Saturation 99% 11/30/2024 10:16 AM SUBJECT SCIENTIFIC RESEARCH Inhaled Oxygen Concentration - - Weight 54.2 kg (119 lb 6.4 oz) 11/30/2024 10:16 AM SUBJECT SCIENTIFIC RESEARCH Height 154.9 cm (5' 1) 11/30/2024 10:16 AM SUBJECT SCIENTIFIC RESEARCH Body Mass Index 22.56 11/30/2024 10:16 AM SUBJECT SCIENTIFIC RESEARCH Functional Status Functional Status Response Date of Assess ment Is person deaf or have serious hearing difficult y? No 11/27/2016 Is person blind or have serious difficulty seein g? No 11/27/2016 Does person have serious dif ficulty walking/climbing stairs? No 11/27/2016 Does person have difficulty dressing/bathing? No 11/27/2016 Does person have difficulty doing errands alone? No 11/27/2016 Cognitive Status Response Date of Assessm ent Does person have difficulty concentrating/remembering/making decisions? No 11/27/2016 Plan of Treatment Upcoming Encounters Date Type Department Care Team (Late st Contact Info) Description 01/04/2025 11:15 AM SUBJECT SCIENTIFIC RESEARCH Video Visit [facility] - MOTION STUDY ANALYST [address] [facility] [address] [place] [address] Lluvia Bonner MD [address] [place] [address] 11/20/2025 11:20 AM SUBJECT SCIENTIFIC RESEARCH Office Visit [facility] - Rheumatology [address] [place] [address] Carmen Carlton MD [address] [place] [address] 12/05/2025 10:10 AM SUBJECT SCIENTIFIC RESEARCH Office Visit [facility] - MOTION STUDY ANALYST [address] [place] [address] Jerri Bhat MD [address] [address] Procedures Procedure Name Priority Date/Time Associated Diagnosis Comments HISTONE ANTIBODY 11/16/2024 8:54 AM SUBJECT SCIENTIFIC RESEARCH C-REACTIVE PROTEIN 11/16/2024 8: 54 AM SUBJECT SCIENTIFIC RESEARCH URINALYSIS W/MICROSCOPIC REFLEX TO CULTURE 11/16/2024 8:54 AM SUBJECT SCIENTIFIC RESEARCH CBC W AUTO DIFFERENTIAL 11/16/2024 8:54 AM SUBJECT SCIENTIFIC RESEARCH ERYTHROCYTE SEDIMENTATION RATE 11/16/2024 8:54 AM SUBJECT SCIENTIFIC RESEARCH COMPREHENSIVE METABOLIC PANEL 11/16/2024 8:54 AM SUBJECT SCIENTIFIC RESEARCH CULTURE URINE 11/16/2024 8:54 AM SUBJECT SCIENTIFIC RESEARCH CULTURE URINE REFLEXED II 11/16/2024 8:54 AM SUBJECT SCIENTIFIC RESEARCH IA INSERT NON-INDWELLING BLADDER Routine 09/27/2024 12:00 PM SUBJECT SCIENTIFIC RESEARCH Urinary retention HPV DETECTION HIGH RISK VAN Routine 07/10/2020 4:11 PM CDT Well woman exam with routine gynecological exam HEPATITIS C REAL-TIME PCR QUANTASURE Routine 09/11/2017 4:06 PM SUBJECT SCIENTIFIC RESEARCH from Last 3 Months or Most Recently Relevant to Health Maintenance Results * CULTURE URINE REFLEXED II (11/16/2024 8:54 AM SUBJECT SCIENTIFIC RESEARCH) Reflexive Urine Culture See Below [facility] Comment: CULTURE INDICATED - RESULTS TO FOLLOW Test Performed at: [facility] [address] KATELYN WILLIAMSON MD 11/16/2024 8:54 AM SUBJECT SCIENTIFIC RESEARCH 11/16/2024 8:55 AM SUBJECT SCIENTIFIC RESEARCH Carmen Carlton MD LAB - MICROBIO LOGY ORDERABLES Performing Organization Address [facility] [address]/[facility] Co de Phone Number [address] [address] * (ABNORMAL) URINALYSIS W/MICROSCOPIC REFLEX TO CULTURE (11/16/2024 8:54 AM SUBJECT SCIENTIFIC RESEARCH) Color UA YELLOW YELLOW [facility] Appearance CLOUDY(A) CLEAR [facility] Specific [place] UA 1.004 1.001 - 1.035 [facility] pH UA 7.0 5.0 - 8.0 [facility] Glucose UA NEGATIVE NEGATIVE [facility] Bilirubin UA NEGATIVE NEGATIVE [facility] Ketone UA NEGATIVE NEGATIVE [facility] Blood UA NEGATIVE NEGATIVE [facility] Protein UA NEGATIVE NEGATIVE [facility] Nitrite NEGATIVE NEGATIVE [facility] Leukocyte Esterase 3+(A) NEGATIVE [facility] WBC UA 10-20(A) < OR = 5 /HPF [facility] RBC UA NONE SEEN < OR = 2 /HPF [facility] Epithelial Cell UA 10-20(A) < OR = 5 /HPF [facility] Bacteria UA NONE SEEN NONE SEEN /HPF [facility] Hyaline Casts NONE SEEN NONE SEEN /LPF [facility] Note See Below [facility] Comment: This urine was analyzed for the presence of WBC, RBC, bacteria, casts, and other formed elements. Only those elements seen were reported. Test Performed at: [facility] [address] KATELYN WILLIAMSON MD 11/16/2024 8:54 AM SUBJECT SCIENTIFIC RESEARCH 11/16/2024 8:55 AM SUBJECT SCIENTIFIC RESEARCH Carmen Carlton MD LAB - URINALYS IS ORDERABLES Performing Organization Address [facility] [address]/[facility] Co de Phone Number [address] [address] * C-REACTIVE PROTEIN (11/16/2024 8:54 AM SUBJECT SCIENTIFIC RESEARCH) C-Reactive Protein <3.0 <8.0 mg/L [facility] Comment: Test Performed at: [facility] [address] [address] KATELYN WILLIAMSON MD 11/16/2024 8:54 AM SUBJECT SCIENTIFIC RESEARCH 11/16/2024 8:55 AM SUBJECT SCIENTIFIC RESEARCH Carmen Carlton MD LAB - CHEMISTR Y ORDERABLES Performing Organization Address [facility] [address] [facility] Co de Phone Number [address] [address] * (ABNORMAL) HISTONE ANTIBODY (11/16/2024 8:54 AM SUBJECT SCIENTIFIC RESEARCH) Pathologist [facility] Histone Antibodies >5.0(H) U [facility] Comment: Value Explanation of Results ------ <1.0 Negative 1.0-1.5 Weak Positive 1.6-2.5 Moderate Positive >2.5 Strong Positive Test Performed at: [facility] [address] [address] KEANU CALVIN 11/16/2024 8:54 AM SUBJECT SCIENTIFIC RESEARCH 11/16/2024 8:55 AM SUBJECT SCIENTIFIC RESEARCH Carmen Carlton MD LAB - CHEMISTR Y ORDERABLES Performing Organization Address [facility] [address]/[facility] Co de Phone Number [address] [address] * CULTURE URINE (11/16/2024 8:54 AM SUBJECT SCIENTIFIC RESEARCH) [facility] Culture [facility] Comment: CULTURE, URINE, ROUTINE Micro Number: [id number] Test Status: Final Specimen Source: Urine Specimen Quality: Adequate Result: No Growth REPORT COMMENT: FASTING:YES Test Performed at: [facility] [address] [address] KATELYN WILLIAMSON MD 11/16/2024 8:54 AM SUBJECT SCIENTIFIC RESEARCH 11/16/2024 8:55 AM SUBJECT SCIENTIFIC RESEARCH Carmen Carlton MD LAB - MICROBIO LOGY ORDERABLES Performing Organization Address [facility] [address]/[facility] Co de Phone Number [address] [address] * ERYTHROCYTE SEDIMENTATION RATE (11/16/2024 8:54 AM SUBJECT SCIENTIFIC RESEARCH) Erythrocyte Sedimentation Rate Westergren 11 < OR = 30 mm/h [facility] Comment: Test Performed at: [facility] [address] [place] [address] KATELYN WILLIAMSON MD 11/16/2024 8:54 AM SUBJECT SCIENTIFIC RESEARCH 11/16/2024 8:55 AM SUBJECT SCIENTIFIC RESEARCH Carmen Carlton MD LAB - HEMATOLO GY ORDERABLES [facility] [address] [place] [address] * (ABNORMAL) CBC WITH DIFFERENTIAL (11/16/2024 8:54 AM SUBJECT SCIENTIFIC RESEARCH) White Blood Cell Count 3.8 3.8 - 10.8 Thousand/u L [facility] RBC 4.06 3.80 - 5.10 Million/uL [facility] Hemoglobin 12.5 11.7 - 15.5 g/dL [facility] Hematocrit 37.5 35.0 - 45.0 % [facility] MCV 92.4 80.0 - 100.0 fL [facility] MCH 30.8 27.0 - 33.0 pg [facility] MCHC 33.3 32.0 - 36.0 g/dL [facility] Comment: For adults, a slight decrease in the calculated MCHC value (in the range of 30 to 32 g/dL) is most likely not clinically significant; however, it should be interpreted with caution in correlation with other red cell parameters and the patient's clinical condition. RDW 12.1 11.0 - 15.0 % [facility] Platelet Count 289 140 - 400 Thousand/u L [facility] MPV 10.4 7.5 - 12.5 fL [facility] Neutrophil Absolute 1364(L) 1500 - 7800 cells/uL [facility] Lymphocytes Absolute 1915 850 - 3900 cells/uL [facility] Absolute Monocytes 331 200 - 950 cells/uL [facility] Eosinophils Absolute 141 15 - 500 cells/uL [facility] Basophils Absolute 49 0 - 200 cells/uL [facility] Granulocytes % 35.9 % [facility] Lymphocytes % 50.4 % [facility] Monocytes % 8.7 % [facility] Eosinophils % 3.7 % [facility] Basophils % 1.3 % [facility] Comment: Test Performed at: [facility] [address] [place] [address] KATELYN WILLIAMSON MD 11/16/2024 8:54 AM SUBJECT SCIENTIFIC RESEARCH 11/16/2024 8:55 AM SUBJECT SCIENTIFIC RESEARCH Carmen Carlton MD LAB - HEMATOLO GY ORDERABLES Performing Organization Address [facility] [address]/[facility] Co de Phone Number [facility] [address] [place] [address] * (ABNORMAL) COMPREHENSIVE METABOLIC PANEL (11/16/2024 8:54 AM SUBJECT SCIENTIFIC RESEARCH) Glucose 100(H) 65 - 99 mg/dL [facility] Comment: Fasting reference interval For someone without known diabetes, a glucose value between 100 and 125 mg/dL is consistent with prediabetes and should be confirmed with a follow-up test. BUN 14 7 - 25 mg/dL [facility] Creatinine 0.75 0.50 - 1.05 mg/dL [facility] eGFR by Cystatin C 89 > OR = 60 mL/min/1. 73m2 [facility] BUN/Creatinine Ratio SEE NOTE: 6 - (calc) [facility] Comment: Not Reported: BUN and Creatinine are within reference range. Sodium 138 135 - 146 mmol/L [facility] Potassium 4.2 3.5 - 5.3 mmol/L [facility] Chloride 104 98 - 110 mmol/L [facility] CO2 30 20 - 32 mmol/L [facility] Calcium 9.1 8.6 - 10.4 mg/dL [facility] Protein Total 6.5 6.1 - 8.1 g/dL [facility] Albumin 4.2 3.6 - 5.1 g/dL [facility] Globulin Total 2.3 1.9 - 3.7 g/dL (calc) [facility] Albumin/Globulin Ratio 1.8 1.0 - 2.5 (calc) [facility] Bilirubin Total 0.4 0.2 - 1.2 mg/dL [facility] Alkaline Phosphatase 83 37 - 153 U/L [facility] AST 15 10 - 35 U/L [facility] ALT 12 6 - 29 U/L [facility] Comment: Test Performed at: [facility] [address] KATELYN WILLIAMSON MD 11/16/2024 8:54 AM SUBJECT SCIENTIFIC RESEARCH 11/16/2024 8:55 AM SUBJECT SCIENTIFIC RESEARCH Carmen Carlton MD LAB - CHEMISTR Y ORDERABLES Performing Organization Address [facility] [address]/[facility] Co de Phone Number [facility] [address] [place] [address] * IA INSERT NON-INDWELLING BLADDER (09/27/2024 12:00 PM SUBJECT SCIENTIFIC RESEARCH) Narrative Lluvia Bonner MD - 09/27/2024 12:00 PM SUBJECT SCIENTIFIC RESEARCH Lluvia Bonner MD 09/27/2024 1:10 PM Procedure note: Straight catheterization was performed after swabbing the urethra with betadine. A 14 Fr urethral catheter was inserted without difficulty and the bladder was drained for 250 mL. The patient tolerated the procedure well. Post Void Residual: The Postvoid Residual Volume (PVR) was 250 mL. Lluvia Bonner MD PROCEDURE/MINOR SURG ICAL ORDERABLES * HPV DETECTION HIGH RISK VAN (07/10/2020 4:11 PM CDT) Pathologist [facility] High Risk Human Papilloma Result Not Detected Not Detected 07/16/2020 1:52 PM CDT [facility] High Risk Human Papilloma Interp 07/16/2020 1:52 PM CDT [facility] Comment:High Risk Human Pastor lloma Virus was Not Detected. Pathology/Cytolo gy MISCELLANEOUS SAMPLES / Unknown 07/10/2020 4:11 PM CDT 07/12/2020 12:56 PM CDT Narrative [facility] - 07/16/2020 1:52 PM CDT Nucleic acid isolated from the specimen was analyzed with a nucleic acid amplification test (FDA approved Gen-Probe HPV Assay) to detect high risk human papilloma virus (Types: 16, 18, 31, 33, 35, 39, 45, 51, 52, 56, 58, 59, 66, and 68). The reference range is Not Detected. Comment: These test results should not be used as the sole basis for clinical assessment and treatment of patients. These results should always be correlated with other available data (cytology, histology, and clinical information). Rebecca Box APRN-VECTOR CONTROL SPECIALIST LAB - MICRO BIOLOGY ORDERABLES [facility] [address] [phone] * HEPATITIS C REAL-TIME PCR QUANTASURE (09/11/2017 4:06 PM SUBJECT SCIENTIFIC RESEARCH) Pathologist [facility] Hepatitis C Virus RNA PCR Quantitative <15 NOT DETECTED <15 IU/mL [facility] ([facility]) Hepatitis C Virus RNA Log IU/mL <1.18 NOT DETECTED <1.18 Log IU/mL [facility] ([facility]) See Note [facility] ([facility]) Comment: The analytical performance characteristics of this assay have been determined by [facility]. The modifications have not been cleared or approved by the FDA. This assay has been validated pursuant to the CLIA regulations and is used for clinical purposes. This test was performed using the JOSE MANUEL(R)AmpliPrep/ JOSE MANUEL(R)TaqMan(R)HCV Test,v2.0. For more information on this test, go to: http://education.Smallaa/faq/YRN39i6 (This link is being provided for informational/ educational purposes only.) Test Performed at: [facility] [address] [place] [address] DENNISE EDGE DO,MPH 09/11/2017 4:06 PM SUBJECT SCIENTIFIC RESEARCH 09/11/2017 4:06 PM SUBJECT SCIENTIFIC RESEARCH Carmen Carlton MD LAB - SEROLOGY ORDERABLES [facility] ([facility]) from Last 3 Months or Most Recently Relevant to Health Maintenance Care Teams Continuous Linter Drier Operator Relationship Specialty Start Date End Date Tim Harris MD [address] [place] [phone] PCP - General Family Medicine 11/26/16
--- OUTSIDE RECORDS SUMMARY | 2024-12-28 01:05 | XMS_ITS | Clinical Summary ---
Author Organization [facility] Address [address] [place] [id number] Care Team Providers Care Program Eligibility Specialist Name Role Phone Ric Romero MD Primary Care Provider [phone] Social History Tobacco Use Types Packs/Day Years Used Date Smoking Tobacco: Never Assessed Comments Unknown Sex and Gender Information Value Date Recorded Sex Assigned at Not on file Legal Sex Female 10:39 PM CDT Gender Identity Not on file Sexual Orientation Not on file Last Filed Vital Signs Vital Sign Reading Time Taken Comments Blood Pressure 100/68 03/31/2003 11:26 AM CDT Pulse 72 03/31/2003 11:26 AM CDT Regu lar Temperature - - Respiratory Rate - - Oxygen Saturation - - Inhaled Oxygen Concentration - - Weight 43.1 kg (95 lb) 03/31/2003 11:26 AM CDT Height 154.9 cm (5' 1) 03/31/2003 11:26 AM CDT Body Mass Index 17.95 03/31/2003 11:26 AM CDT Plan of Treatment Health Maintenance Due Date Last Done Comments Cervical Cancer Screening Pa p Smear (Age 30 to 64) Every 3 Years 1961 Colorectal Cancer Screening Colonoscopy (10 Years) 1961 Annual Physical 1964 Hepatitis C 1979 DTaP, Tdap and Td Vaccines ( 1 - Tdap) 1980 Cervical Cancer Screening Pa p with HPV Testing (Age 30 to 64) Every 5 Years 1991 Cervical Cancer Screening with HPV 1991 Mammogram Screening 2001 Zoster Vaccines (1 of 2) 2011 COVID-19 Vaccine (2023-2 5 season) 2024 Influenza Adult (#1) 2024 RSV Immunization or 60+ Years (1 - 1-dose 75+ series) 2036 Meningococcal B Vaccine Aged Out No l onger eligible based on patient's age to complete this topic Meningococcal Vaccine Aged Out No cal sharad eligible based on patient's age to complete this topic Pneumococcal Vaccine: Pediat rics (0 to 5 Years) and At-Risk Patients (6 to 64 Years) Aged Out No longer eligible b ased on patient's age to complete this topic RSV Immunizations Under 20 Months Aged Out No longer eligible based on patient's age to complete this topic Insurance [facility] Care Teams Program Eligibility Specialist Relationship Specialty [place] [id number] [place] [address] PCP - General HEMATOLOGY/ONCOLOGY 07/09/21
--- OUTSIDE RECORDS SUMMARY | 2024-12-28 01:05 | XMS_ITS | Patient Health Summary ---
Author Organization [facility] Address [address] [address] Care Team Providers Care School Based Therapist Name Role Phone Tim Hraris MD Primary Care Provider [phone] Note from [facility],non-owned Affiliates and Associated Physician Practices is amultiple site organization consisting of ambulatory clinics and hospital sitesin [place], [place], [place] and [place]. This disclosure is being madepursuant to the Care Everywhere program and may not contain all information available regarding this patient. Last updated 18.[facility] Allergies * Adhesive Sensitivity(Rash) -Medium Criticality * Codeine(Nausea and/or Vomiting) -Low Criticality * Hydrocod Polst-Cpm Polst Er(Psychiatric) -Medium Criticality * Midazolam(Nausea and/or Vomiting) -Low Criticality * Tussionex Pennkinetic Er(Unknown) * Guaifenesin(Other) -Low Criticality,Inactive Medications * Be aware that medications may not be up to date on this document. Alwaysverify current medications with the patient. * Prxqanc-Hystomkjc-Rlvi 167-83-8 MG Take 1 tablet by mouth every other day * albuterol HFA (PROVENTIL;VENTOLIN;PROAIR) 108 (90 BASE) MCG/ACT inhaler Inhale 2 (two) puffs by mouth as needed * Cyanocobalamin (VITAMIN B 12) 100 MCG Take 1 tablet by mouth every other day * Multiple Vitamin Take 1 (one) tablet by mouth every other day * Probiotic Product (ACIDOPHILUS/GOAT MILK) CAPS Take 1 tablet by mouth * lisinopril (PRINIVIL; ZESTRIL) 2.5 MG tablet(Started 01/27/2019) Take 1 (one) tablet by mouth once daily * amLODIPine (NORVASC) 2.5 MG tablet(Started 11/08/2019) Take 1 (one) tablet by mouth at bedtime * estradiol (ESTRACE VAGINAL) 0.1 MG/GM vaginal cream(Started 04/27/2020) Please compound 0.15 mg/g estradiol vagina cream in a versa base. Patient to use a pea size amount to urethra 3 x week 1 refill by 04/27/2021 * pantoprazole EC (PROTONIX) 40 MG tablet(Started 07/27/2021) * gabapentin (NEURONTIN) 100 MG capsule(Started 03/03/2022) TAKE 3 (THREE) CAPSULES BY MOUTH AT BEDTIME * PEPPERMINT OIL PO * imipramine (Tofranil) 10 MG tablet Take 4 (four) tablets by mouth at bedtime * pilocarpine HCl (Salagen) 5 MG tablet(Started 04/22/2024) Take 1 (one) tablet by mouth 3 times daily 1 refill by 04/22/2025 * magnesium gluconate 500 (27 Mg) MG tablet Take 1 (one) tablet by mouth once daily * meloxicam (Mobic) 15 MG tablet(Started 11/10/2024) TAKE 1 TABLET BY MOUTH ONCE DAILY NEEDED 5 refills by 11/10/2025 * cranberry (Cranberry) 400 MG tablet Take 1 (one) tablet by mouth once daily Active Problems Problem Noted Date Diagnosed Date Dysuria 09/01/2024 Urinary retention 09/01/2024 Urethral caruncle 09/01/2024 Cystocele with prolapse 09/01/2024 Fibromyalgia 08/13/2023 09/21/2023 Trochanteric bursitis, left hip 03/22/2018 Sicca syndrome 03/22/2018 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 (AFLURIA, FLUZONE TRIVALENT; 6MO+) (IIV3)(Given 07/18/2013) * INFLUENZA VACCINE(Given 08/02/2018) * TDAP (7yrs+)(Given 07/18/2013) * iNFLUENZA VACCINE, RECOM-BRONW, QUADR. (FLUBLOCK QUADRIVALENT; 18Y+) (RIV4)(Given 09/04/2020) Social History Tobacco Use Types Packs/Day Years [...] Comments Blood Pressure 122/74 11/30/2024 10:16 AM BAR ATTENDANT Pulse 94 11/30/2024 10:16 AM BAR ATTENDANT Temperature 36.6 C (97.8 F) 11/21/2024 10:56 AM BAR ATTENDANT Respiratory Rate 16 09/02/2021 11:34 AM CDT Oxygen Saturation 99% 11/30/2024 10:16 AM BAR ATTENDANT Inhaled Oxygen Concentration - - Weight 54.2 kg (119 lb 6.4 oz) 11/30/2024 10:16 AM BAR ATTENDANT Height 154.9 cm (5' 1) 11/30/2024 10:16 AM BAR ATTENDANT Body Mass Index 22.56 11/30/2024 10:16 AM BAR ATTENDANT Procedures * HISTONE ANTIBODY(Performed 11/16/2024) * C-REACTIVE PROTEIN(Performed 11/16/2024) * URINALYSIS W/MICROSCOPIC REFLEX TO CULTURE(Performed 11/16/2024) * CBC W AUTO DIFFERENTIAL(Performed 11/16/2024) * ERYTHROCYTE SEDIMENTATION RATE(Performed 11/16/2024) * COMPREHENSIVE METABOLIC PANEL(Performed 11/16/2024) * CULTURE URINE(Performed 11/16/2024) * CULTURE URINE REFLEXED II(Performed 11/16/2024) * IN INSERT NON-INDWELLING BLADDER(Performed 09/27/2024) Performed for Urinary retention * IN INSERT NON-INDWELLING BLADDER(Performed 09/02/2024) Performed for Dysuria, Urinary retention, Cystocele with prolapse, Urethral caruncle * URINALYSIS AUTO - POINT OF CARE (AMB) [facility](Performed 09/01/2024) Performed for Dysuria, Urinary retention * C-REACTIVE PROTEIN(Performed 08/07/2023) * URINALYSIS W/MICROSCOPIC REFLEX TO CULTURE(Performed 08/07/2023) * CBC W AUTO DIFFERENTIAL(Performed 08/07/2023) * ERYTHROCYTE SEDIMENTATION RATE(Performed 08/07/2023) * COMPREHENSIVE METABOLIC PANEL(Performed 08/07/2023) * CULTURE URINE(Performed 08/07/2023) * CULTURE URINE REFLEXED II(Performed 08/07/2023) * HISTONE ANTIBODY(Performed 02/12/2023) Performed for Histone antibody positive, Sicca syndrome (HCC), Fibromyalgia * URINALYSIS W/MICROSCOPIC REFLEX TO CULTURE(Performed 02/12/2023) Performed for Histone antibody positive, Sicca syndrome (HCC), Fibromyalgia * ERYTHROCYTE SEDIMENTATION RATE(Performed 02/12/2023) Performed for Histone antibody positive, Sicca syndrome (HCC), Fibromyalgia * C-REACTIVE PROTEIN(Performed 02/12/2023) Performed for Histone antibody positive, Sicca syndrome (HCC), Fibromyalgia * COMPREHENSIVE METABOLIC PANEL(Performed 02/12/2023) Performed for Histone antibody positive, Sicca syndrome (HCC), Fibromyalgia * CBC W AUTO DIFFERENTIAL(Performed 02/12/2023) Performed for Histone antibody positive, Sicca syndrome (HCC), Fibromyalgia * CULTURE URINE(Performed 02/12/2023) * CULTURE URINE REFLEXED II(Performed 02/12/2023) * IN LARYNGOSCOPY,FLEX/RIGID+STROBOSCOPY(Performed 10/14/2022) Performed for Hoarseness or changing voice * HISTONE ANTIBODY(Performed 05/02/2022) * C-REACTIVE PROTEIN(Performed 05/02/2022) * CBC W AUTO DIFFERENTIAL(Performed 05/02/2022) * URINALYSIS W/MICROSCOPIC REFLEX TO CULTURE(Performed 05/02/2022) * ERYTHROCYTE SEDIMENTATION RATE(Performed 05/02/2022) * COMPREHENSIVE METABOLIC PANEL(Performed 05/02/2022) * CULTURE URINE REFLEXED I(Performed 05/02/2022) * HISTONE ANTIBODY(Performed 08/23/2021) Performed for Histone antibody positive, Sicca syndrome (HCC), Encounter for therapeutic drug monitoring, Encounter for long-term (current) use of high-risk medication * URINALYSIS W/MICROSCOPIC REFLEX TO CULTURE(Performed 08/23/2021) Performed for Histone antibody positive, Sicca syndrome (HCC), Encounter for therapeutic drug monitoring, Encounter for long-term (current) use of high-risk medication * ERYTHROCYTE SEDIMENTATION RATE(Performed 08/23/2021) Performed for Histone antibody positive, Sicca syndrome (HCC), Encounter for therapeutic drug monitoring, Encounter for long-term (current) use of high-risk medication * C-REACTIVE PROTEIN(Performed 08/23/2021) Performed for Histone antibody positive, Sicca syndrome (HCC), Encounter for therapeutic drug monitoring, Encounter for long-term (current) use of high-risk medication * COMPREHENSIVE METABOLIC PANEL(Performed 08/23/2021) Performed for Histone antibody positive, Sicca syndrome (HCC), Encounter for therapeutic drug monitoring, Encounter for long-term (current) use of high-risk medication * CBC W AUTO DIFFERENTIAL(Performed 08/23/2021) Performed for Histone antibody positive, Sicca syndrome (HCC), Encounter for therapeutic drug monitoring, Encounter for long-term (current) use of high-risk medication * CULTURE URINE(Performed 08/23/2021) * CULTURE URINE REFLEXED II(Performed 08/23/2021) * LAB RESULTS ORDER(Performed 08/23/2021) * LAB RESULTS ORDER(Performed 08/23/2021) * C-REACTIVE PROTEIN(Performed 04/23/2021) * CBC W AUTO DIFFERENTIAL(Performed 04/23/2021) * ERYTHROCYTE SEDIMENTATION RATE(Performed 04/23/2021) * URINALYSIS W/MICROSCOPIC REFLEX TO CULTURE(Performed 04/23/2021) * COMPREHENSIVE METABOLIC PANEL(Performed 04/23/2021) * CULTURE URINE REFLEXED I(Performed 04/23/2021) * PAP IMAGE-GUIDED W HPV(Performed 07/10/2020) Performed for Well woman exam with routine gynecological exam * HPV DETECTION HIGH RISK VAN(Performed 07/10/2020) Performed for Well woman exam with routine gynecological exam * C-REACTIVE PROTEIN(Performed 05/10/2020) * CBC W AUTO DIFFERENTIAL(Performed 05/10/2020) * URINALYSIS W/MICROSCOPIC REFLEX TO CULTURE(Performed 05/10/2020) * ERYTHROCYTE SEDIMENTATION RATE(Performed 05/10/2020) * HISTONE ANTIBODY(Performed 05/10/2020) * COMPREHENSIVE METABOLIC PANEL(Performed 05/10/2020) * CULTURE URINE(Performed 05/10/2020) * CULTURE URINE REFLEXED(Performed 05/10/2020) * CULTURE URINE(Performed 04/20/2020) Performed for Acute cystitis without hematuria * HISTONE ANTIBODY(Performed 11/14/2019) Performed for Histone antibody positive, Polyarthralgia, Encounter for therapeutic drug monitoring,Encounter for long-term (current) use of high-risk medication * C-REACTIVE PROTEIN(Performed 11/14/2019) * CBC W AUTO DIFFERENTIAL(Performed 11/14/2019) * URINALYSIS W/MICROSCOPIC REFLEX TO CULTURE(Performed 11/14/2019) * ERYTHROCYTE SEDIMENTATION RATE(Performed 11/14/2019) * HISTONE ANTIBODY(Performed 11/14/2019) * COMPREHENSIVE METABOLIC PANEL(Performed 11/14/2019) * CULTURE URINE REFLEXED I(Performed 11/14/2019) * EARLY SJOGREN'S SYNDROME PROFILE(Performed 12/28/2018) * C-REACTIVE PROTEIN(Performed 12/28/2018) * CBC W AUTO DIFFERENTIAL(Performed 12/28/2018) * ERYTHROCYTE SEDIMENTATION RATE(Performed 12/28/2018) * URINALYSIS W/MICROSCOPIC REFLEX TO CULTURE(Performed 12/28/2018) * COMPREHENSIVE METABOLIC PANEL(Performed 12/28/2018) * CULTURE URINE(Performed 12/28/2018) * CULTURE URINE REFLEXED(Performed 12/28/2018) * XR LUMBAR SPINE 2 OR 3VW(Performed 05/27/2018) Performed for Histone antibody positive, Trochanteric bursitis, left hip, Sicca syndrome (HCC) * XR PELVIS W BILAT HIP 2VW(Performed 05/27/2018) Performed for Histone antibody positive, Trochanteric bursitis, left hip, Sicca syndrome (HCC) * URINALYSIS W/MICROSCOPIC REFLEX TO CULTURE(Performed 04/06/2018) Performed for Histone antibody positive, Trochanteric bursitis, left hip, Sicca syndrome (HCC) * COMPREHENSIVE METABOLIC PANEL(Performed 04/06/2018) Performed for Histone antibody positive, Trochanteric bursitis, left hip, Sicca syndrome (HCC) * CBC W/O DIFFERENTIAL(Performed 04/06/2018) Performed for Histone antibody positive, Trochanteric bursitis, left hip, Sicca syndrome (HCC) * CULTURE URINE(Performed 04/06/2018) * CULTURE URINE REFLEXED(Performed 04/06/2018) * HISTONE ANTIBODY(Performed 03/19/2018) Performed for Histone antibody positive * CARDIOLIPIN ANTIBODY IGA(Performed 09/11/2017) * CK BLOOD(Performed 09/11/2017) * COMPREHENSIVE METABOLIC PANEL(Performed 09/11/2017) * URIC ACID BLOOD(Performed 09/11/2017) * HISTONE ANTIBODY(Performed 09/11/2017) * DNA ANTIBODY DS CRITHIDIA IFA(Performed 09/11/2017) * BETA-2 GLYCOPROTEIN 1 ANTIBODY IGG/IGM/IGA PANEL(Performed 09/11/2017) * LUPUS ANTICOAGULANT PANEL W RFLX(Performed 09/11/2017) * CARDIOLIPIN ANTIBODY IGM(Performed 09/11/2017) * CARDIOLIPIN ANTIBODY IGG(Performed 09/11/2017) * C-REACTIVE PROTEIN(Performed 09/11/2017) * RHEUMATOID FACTOR BLOOD QUANTITATIVE(Performed 09/11/2017) * KANDICE BLOOD SCREEN W/REFLEX TITER(Performed 09/11/2017) * URINALYSIS W/MICROSCOPIC NO CULTURE(Performed 09/11/2017) * CBC W/O DIFFERENTIAL(Performed 09/11/2017) * ERYTHROCYTE SEDIMENTATION RATE(Performed 09/11/2017) * MORGAN (SM) ANTIBODY DEANNA(Performed 09/11/2017) * CHROMATIN ANTIBODY(Performed 09/11/2017) * MACHINE WIPER ANTIBODY(Performed 09/11/2017) * CYCLIC CITRULLINATED PEPTIDE(CCP) AB IGG(Performed 09/11/2017) * SS-A/SS-B (SJOGREN'S) ANTIBODY PANEL(Performed 09/11/2017) * SCLERODERMA 70 (SCL) ANTIBODY(Performed 09/11/2017) * TSH(Performed 09/11/2017) * T4 FREE(Performed 09/11/2017) * THYROID PEROXIDASE ANTIBODY(Performed 09/11/2017) * THYROGLOBULIN ANTIBODY(Performed 09/11/2017) * HEPATITIS B SURFACE ANTIGEN W RFLX CONFIRMATION(Performed 09/11/2017) * C3, C4, COMPLEMENT CH50(Performed 09/11/2017) * HEPATITIS C REAL-TIME PCR QUANTASURE(Performed 09/11/2017) * XR HAND LEFT 2VW(Performed 09/11/2017) * XR HAND RIGHT 2VW(Performed 09/11/2017) * XR CERVICAL SPINE 2 OR 3VW(Performed 09/11/2017) * XR SHOULDER RIGHT 2VW OR MORE(Performed 09/11/2017) * XR SHOULDER LEFT 2VW OR MORE(Performed 09/11/2017) * HYDROGEN BREATH TEST(Performed 11/27/2016) * BREATH HYDROGEN/METHANE TEST(Performed 11/27/2016) Performed for Abdominal pain, unspecified location, Abdominal bloating * PAP IMAGE-GUIDED W HPV(Performed 05/19/2016) * PATHOLOGY/GENETICS HISTORICAL-ONBASE(Performed 05/19/2016) * PH FLUID - POCT (AMB) [facility](Performed 10/16/2015) * FUNGUS CLAUDIA - POINT OF CARE (AMB) [facility](Performed 10/16/2015) * WET PREP - POINT OF CARE (AMB) [facility](Performed 10/16/2015) * CULTURE YEAST WITH DIRECT FLUORESCENT CLAUDIA(Performed 10/16/2015) Results * CULTURE URINE REFLEXED II (11/16/2024 8:54 AM BAR ATTENDANT) Only the most recent of4 resultswithin the time period is included. Reflexive Urine Culture See Below [facility] Comment: CULTURE INDICATED - RESULTS TO FOLLOW Test Performed at: [facility] [address] KATELYN WILLIAMSON MD 11/16/2024 8:54 AM BAR ATTENDANT 11/16/2024 8:55 AM BAR ATTENDANT Carmen Carlton MD LAB - MICROBIO LOGY ORDERABLES [address] [address] * (ABNORMAL) URINALYSIS W/MICROSCOPIC REFLEX TO CULTURE (11/16/2024 8:54 AM BAR ATTENDANT) Only the most recent of10 resultswithin the time period is included. Color UA YELLOW YELLOW [facility] Appearance CLOUDY(A) CLEAR [facility] Specific [place] UA 1.004 1.001 - 1.035 [facility] pH [...] elements seen were reported. Test Performed at: [facility] [address] KATELYN WILLIAMSON MD 11/16/2024 8:54 AM BAR ATTENDANT 11/16/2024 8:55 AM BAR ATTENDANT Carmen Carlton MD LAB - URINALYS IS ORDERABLES Performing Organization Address [facility] de Phone Number [address] [address] * C-REACTIVE PROTEIN (11/16/2024 8:54 AM BAR ATTENDANT) Only the most recent of10 resultswithin the time period is included. C-Reactive Protein <3.0 <8.0 mg/L [facility] Comment: Test Performed at: [facility] [address] [address] KATELYN WILLIAMSON MD 11/16/2024 8:54 AM BAR ATTENDANT 11/16/2024 8:55 AM BAR ATTENDANT Carmen Carlton MD LAB - CHEMISTR Y ORDERABLES Performing Organization Address [facility] Co de Phone Number [address] [address] * (ABNORMAL) HISTONE ANTIBODY (11/16/2024 8:54 AM BAR ATTENDANT) Only the most recent of8 resultswithin the time period is included. Histone Antibodies >5.0(H) U [facility] Comment: Value Explanation of Results ------ <1.0 Negative 1.0-1.5 Weak Positive 1.6-2.5 Moderate Positive >2.5 Strong Positive Test Performed at: [facility] [address] [place] [address] KEANU CALVIN 11/16/2024 8:54 AM BAR ATTENDANT 11/16/2024 8:55 AM BAR ATTENDANT Carmen Carlton MD LAB - CHEMISTR Y ORDERABLES Performing Organization Address [facility] Co de Phone Number [address] [address] * CULTURE URINE (11/16/2024 8:54 AM BAR ATTENDANT) Only the most recent of8 resultswithin the time period is included. Culture [facility] Comment: CULTURE, URINE, ROUTINE Micro Number: [id number] Test Status: Final Specimen Source: Urine Specimen Quality: Adequate Result: No Growth REPORT COMMENT: FASTING:YES Test Performed at: [facility] [address] KATELYN WILLIAMSON MD 11/16/2024 8:54 AM BAR ATTENDANT 11/16/2024 8:55 AM BAR ATTENDANT Carmen Carlton MD LAB - MICROBIO LOGY ORDERABLES Performing Organization Address [facility] Co de Phone Number [address] [address] * ERYTHROCYTE SEDIMENTATION RATE (11/16/2024 8:54 AM BAR ATTENDANT) Only the most recent of10 resultswithin the time period is included. Erythrocyte Sedimentation Rate Westergren 11 < OR = 30 mm/h [facility] Comment: Test Performed at: [facility] [address] [facility] [place] [address] KATELYN WILLIAMSON MD 11/16/2024 8:54 AM BAR ATTENDANT 11/16/2024 8:55 AM BAR ATTENDANT Carmen Carlton MD LAB - HEMATOLO GY ORDERABLES Performing Organization Address [facility] de Phone Number [facility] [address] [place] [phone] * (ABNORMAL) CBC WITH DIFFERENTIAL (11/16/2024 8:54 AM BAR ATTENDANT) Only the most recent of9 resultswithin the time period is included. White Blood Cell Count 3.8 3.8 - [...] 1.3 % [facility] Comment: Test Performed at: [facility] [address] [place] [address] KATELYN WILLIAMSON MD 11/16/2024 8:54 AM BAR ATTENDANT 11/16/2024 8:55 AM BAR ATTENDANT Carmen Carlton MD LAB - HEMATOLO GY ORDERABLES Performing Organization Address [facility] de Phone Number [facility] [address] [place] [address] * (ABNORMAL) COMPREHENSIVE METABOLIC PANEL (11/16/2024 8:54 AM BAR ATTENDANT) Only the most recent of11 resultswithin the time period is included. Glucose 100(H) 65 - 99 mg/dL [facility] [...] [facility] BUN/Creatinine Ratio SEE NOTE: 6 - 22 (calc) [facility] Comment: Not Reported: BUN and [...] 29 U/L [facility] Comment: Test Performed at: [facility] [address] [address] KATELYN WILLIAMSON MD 11/16/2024 8:54 AM BAR ATTENDANT 11/16/2024 8:55 AM BAR ATTENDANT Carmen Carlton MD LAB - CHEMISTR Y ORDERABLES [facility] [address] [place] [address] * IN INSERT NON-INDWELLING BLADDER (09/27/2024 12:00 PM BAR ATTENDANT) Narrative Lluvia Bonner MD - 09/27/2024 12:00 PM BAR ATTENDANT Lluvia Bonner MD 09/27/2024 1:10 PM Procedure note: Straight catheterization was performed after swabbing the urethra with betadine. A 14 Fr urethral catheter was inserted without difficulty and the bladder was drained for 250 mL. The patient tolerated the procedure well. Post Void Residual: The Postvoid Residual Volume (PVR) was 250 mL. Lluvia Bonner MD PROCEDURE/MINOR SURG ICAL ORDERABLES * IN INSERT NON-INDWELLING BLADDER (09/02/2024 12:41 PM CDT) Narrative Lluvia Bonner MD - 09/02/2024 12:41 PM CDT Lluvia Bonner MD 09/02/2024 12:42 PM Procedure note: Straight catheterization was performed after swabbing the urethra with betadine. A 14 Fr urethral catheter was inserted without difficulty and the bladder was drained for 220 mL. The patient tolerated the procedure well. Post Void Residual: The Postvoid Residual Volume (PVR) was 220 mL. Lluvia Bonner MD PROCEDURE/MINOR SURG ICAL ORDERABLES * URINALYSIS AUTO - POINT OF CARE (AMB) [facility] (09/01/2024 3:53 PM CDT) Glucose UA n [facility] [address] Bilirubin UA POCT n [facility] [address] Ketones UA POCT n [facility] [address] Specific [place] UA 1.[address] [facility] [address] Blood Urine POCT n [facility] [address] pH UA 6 [facility] [address] Protein UA n [facility] [address] Urobilinogen UA - [facility] [address] Comment:0.2 mg/dL Nitrite UA n [facility] [address] WBC UA n [facility] [address] Urine URINE / Unknown 09/01/2024 3 :53 PM CDT Lluvia Bonner MD LAB - POINT OF CARE ORDERABLES [facility] [address] [place] [address], [facility] [phone] * IN LARYNGOSCOPY,FLEX/RIGID+STROBOSCOPY (10/14/2022 4:50 PM BAR ATTENDANT) Narrative Ramos Crews MD - 10/14/2022 4:50 PM BAR ATTENDANT Ramos Crews MD 10/15/2022 8:04 PM Procedure Note Endoscopy Type: Laryngoscopy with stroboscopy [id number] Endoscope: Flexible 4mm Scope Anesthesia: Lidocaine 2% and Neosynephrine 1/2% (nasal) Procedure Details: The patient was sitting upright in a chair with the head in a slightly anterior sniffing position. The topical anesthesia was administered and then adequate time was allowed for an anesthetic effect. The endoscope was passed thru the right cavity with the tongue retracted anteriorly. The tip of the endoscope was positioned in the oropharynx which allowed a complete view of the base of tongue, vallecula, pyriform recesses, epiglottis, bilateral true and false vocal folds, the interarytenoid and post cricoid region, and the immediate subglottis. Findings: The nasal cavity contained no masses. Mucus membranes moist. There were no masses in the nasopharynx. The tongue base was normal. The true vocal cords were visualized and mobile bilaterally with appropriate mucosal wave. There were no masses or mucosal lesions in the hypopharynx. Condition: Stable. Patient tolerated procedure well. Complications: None I was present for the entirety of the procedure. Jeramy Valverde MD PROCEDURE/MINOR SURG ICAL ORDERABLES * CULTURE URINE REFLEXED I (05/02/2022 1:51 PM CDT) Only the most recent of3 resultswithin the time period is included. Reflexive Urine Culture See Below [facility] Comment: NO CULTURE INDICATED Test Performed at: [facility] [address] [place] [address] DENNISE EDGE DO,MPH 05/02/2022 1:51 PM CDT 05/02/2022 1:51 PM CDT Carmen Carlton MD LAB - MICROBIO LOGY ORDERABLES [facility] [address] [place] [address] * LAB RESULTS ORDER (08/23/2021) Only the most recent of2 resultswithin the time period is included. 08/23/2021 Narrative 08/23/2021 Ordered by an unspecified provider. Scanned Document LAB - THERAPEUTIC DR BRADY MONITORING ORDERABLES * HPV DETECTION HIGH RISK VAN (07/10/2020 4:11 PM CDT) High Risk Human Papilloma Result Not Detected Not Detected 07/16/2020 1:52 PM CDT [facility] High Risk Human Papilloma Interp 07/16/2020 1:52 PM CDT [facility] Comment:High Risk Human Pastor lloma Virus was Not Detected. Pathology/Cytolo gy MISCELLANEOUS SAMPLES / Unknown 07/10/2020 4:11 PM CDT 07/12/2020 12:56 PM CDT Narrative [facility] - 07/16/2020 1:52 PM CDT [...] (cytology, histology, and clinical information). Rebecca Box APRN-HAUL DRIVER LAB - MICRO BIOLOGY ORDERABLES [facility] [address] [place], [place] [address] [phone] * PAP IMAGE-GUIDED W HPV (07/10/2020 4:11 PM CDT) Only the most recent of2 resultswithin the time period is included. Case Report Gynecologic Cytology Report Case: [id number] Authorizing Provider: Rebecca Box, Collected: 07/10/2020 04:11 PM ENGINEERING WRITER-HAUL DRIVER Ordering Location: [facility] Obstetrics Received: 07/12/2020 12:56 PM [facility] First Screen: Leno Ocasio Specimen: THINPREP - IMAGE GUIDED, Cervix/Endocervix 07/16/2020 2:08 PM CDT [facility] LMP unknown 07/16/2020 2:08 PM CDT [facility] Menstrual Status None Applicable 2:08 PM CDT [facility] Specimen Adequacy Satisfactory for evaluation, endocervical/tranf ormation zone absent in a menopausal/post menopausal patient. 07/16/2020 2:08 PM CDT [facility] Categorization Negative for intraepithelial lesion or malignancy. 07/16/2020 2:08 PM CDT [facility] Interpretation CONTENT DIRECTOR Negative for intraepithelial lesion or malignancy. 07/16/2020 2:08 PM CDT [facility] Other Atrophic changes and inflammation. 07/16/2020 2:08 PM CDT [facility] Pap Footnote This specimen was evaluated by the ThinPrep Imaging System along with the an additional manual rescreening by a clock and watch hands dipper and/or pathologist. 07/16/2020 2:08 PM CDT [facility] Embedded Images 0 2:08 PM CDT [facility] Pathology/Cytolo gy MISCELLANEOUS SAMPLES / Unknown 07/10/2020 4:11 PM CDT 07/12/2020 12:56 PM CDT Rebecca Box APRN-MOHAN LAB - PATHO LOGY/CYTOLOGY ORDERABLES [facility] [address] [place], [place] [id number] [place] [address] * CULTURE URINE REFLEXED (05/10/2020 2:59 PM CDT) Only the most recent of3 resultswithin the time period is included. Reflexive Urine Culture CULTURE INDICATED - RESULTS TO FOLLOW [facility] Comment: Test Performed at: [facility] [address] [address] DENNISE EDGE DO,MPH 05/10/2020 2:59 PM CDT 05/10/2020 3:00 PM CDT Carmen Carlton MD LAB - MICROBIO LOGY ORDERABLES [facility] [address] [place] [address] * EARLY SJOGREN'S SYNDROME PROFILE (12/28/2018 10:45 AM BAR ATTENDANT) Salivary Protein 1 Antibody IgG 4.2 EU/ml [facility] Comment: Reference Range: Negative: <20 EU/ml Positive: =>20 EU/ml Salivary Protein 1 Antibody IgA 1.2 EU/ml [facility] Comment: Reference Range: Negative: <20 EU/ml Positive: =>20 EU/ml Salivary Protein 1 Antibody IgM 6.6 EU/ml [facility] Comment: Reference Range: Negative: <20 EU/ml Positive: =>20 EU/ml Carbonic Anhydrase Antibody IgG 17.8 EU/ml [facility] Comment: Reference Range: Negative: <20 EU/ml Positive: =>20 EU/ml Carbonic Anhydrase Antibody IgA 3.9 EU/ml [facility] Comment: Reference Range: Negative: <20 EU/ml Positive: =>20 EU/ml Carbonic Anhydrase Antibody IgM 11.2 EU/ml [facility] Comment: Reference Range: Negative: <20 EU/ml Positive: =>20 EU/ml Parotid Specific Protein Antibody IgG 16.3 EU/ml [facility] Comment: Reference Range: Negative: <20 EU/ml Positive: =>20 EU/ml Parotid Specific Protein Antibody IgA <1.0 EU/ml [facility] Comment: Reference Range: Negative: <20 EU/ml Positive: =>20 EU/ml Parotid Specific Protein Antibody IgM 10.1 EU/ml [facility] Comment: Reference Range: Negative: <20 EU/ml Positive: =>20 EU/ml Comments SEE BELOW [facility] Comment: The novel antibodies salivary gland protein 1 (SP-1), carbonic anhydrase 6 (CA ) and parotid secretory protein (PSP) have shown to be present in animal models for Sjogren's syndrome (SS) and patients with the disease. The antibodies SP-1, CA and PSP occurred earlier in the course of the disease than antibodies to Ro or La. These antibodies were found in 45% of patients meeting the criteria for SS who lacked antibodies to Ro or La. Furthermore, in patients with idiopathic xerostomia and xerophthalmia for less than 2 years, 76% had antibodies to SP-1 and/or CA while only 31% had antibodies to Ro or La. Antibodies to SP-1, CA and PSP may be useful markers for identifying patients with SS at early stages of the disease or those that lack antibodies to either Ro or La. The presence of the antibodies to SP-1, CA and PSP should be correlated with clinical (dry mouth, dry eyes), serological (Ro, La, KANDICE, RF) and histological (positive lymphocytic focus scores) findings in establishing a definitive diagnosis for SS. Carissa Lee et al. (2010). A role of lymphotxin in primary sjogren's syndrome. J Immunol; 185: 9834-1646. Carissa Lee et al. (2012). Novel autoantibodies in Sjogren's syndrome. Clinical Immunology; 145, 251-255. *This test has been developed and performance parameters have been validated by [employer] This test has not been approved by the U.S. Food and Drug Administration (FDA); however, US FDA approval is not required for clinical use. It is not intended that clincal diagnosis and patient management decisions be made using these results alone. This test has been validated using serum samples. The stator tester has not determined the efficacy of this test when performed on CSF, plasma, joint or pleural fluid specimens. The performance characteristics of this test were determined by [employer] REPORT COMMENT: NO DRAW FEE 2ND ORDER, COPY OF INS CARD W/1ST ORDER FASTING:NO Test Performed at: [facility] [address] [place] [id number] NIKUNJ OLVERA,PHD 12/28/2018 10:4 5 AM BAR ATTENDANT 12/28/2018 10:46 AM BAR ATTENDANT Carmen Carlton MD LAB - SEROLOGY ORDERABLES [facility] [address] [place] [address] * XR PELVIS W BILAT HIP 2VW (05/27/2018 3:11 PM CDT) Anatomical Region Laterality Modality Pelvis, Lower Extremity Radiogra phic Imaging 05/27/2018 3:17 PM CDT Impressions 05/27/2018 3:23 PM CDT IMPRESSION: No acute osseous injury of significant arthritis. Report dictated by Lory Garcia MD (technical operations vice president). Dr. WICHO Osman MD have personally reviewed and interpreted this examination/study. This report was electronically signed by WICHO JUAN MD on 05/27/2018 3:23 PM . Narrative 05/27/2018 3:23 PM CDT EXAMINATION: XR PELVIS W BILATERAL HIP 2 VW HISTORY: R 76.0: Histone Antibody Positive M 70.62: Trochanteric Bursitis, Left Hip M 35.00: Sicca Syndrome COMPARISON: No prior study is available for comparison at the time of this dictation. FINDINGS: No acute fracture or dislocation is identified. The joint spaces are preserved. Bone density and texture are normal. The sacroiliac joint and pubic symphysis are normal. Procedure Note Wicoh Juan MD - 05/27/2018 EXAMINATION: XR PELVIS W BILATERAL HIP 2 VW HISTORY: R 76.0: Histone Antibody Positive M 70.62: Trochanteric Bursitis, Left Hip M 35.00: Sicca Syndrome COMPARISON: No prior study is available for comparison at the time of this dictation. FINDINGS: No acute fracture or dislocation is identified. The joint spaces are preserved. Bone density and texture are normal. The sacroiliac joint and pubic symphysis are normal. IMPRESSION: No acute osseous injury of significant arthritis. Report dictated by Lory Garcia MD (technical operations vice president). Dr. WICHO Osman MD have personally reviewed and interpreted this examination/study. This report was electronically signed by WICHO JUAN MD on05/27/2018 3:23 PM . Carmen Carlton MD DIAGNOSTIC KIMBERLEY GING ORDERABLES * XR LUMBAR SPINE 2 OR 3VW (05/27/2018 3:11 PM CDT) Anatomical Region Laterality Modality Spine Radiographic Kimberley ging 05/27/2018 3:20 PM CDT Impressions 05/27/2018 3:50 PM CDT IMPRESSION: 1.No acute fracture or subluxation identified. 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 Dictated by Kodak Bah MD (technical operations vice president). Dr. WICHO Osman MD have personally reviewed and interpreted this examination/study. This report was electronically signed by WICHO JUAN MD on 05/27/2018 3:50 PM . Narrative 05/27/2018 3:50 PM CDT EXAMINATION: XR LUMBAR SPINE 2 OR 3VW HISTORY: R76.0: Histone antibody positive M70.62: Trochanteric bursitis, left hip M35.00: Sicca syndrome COMPARISON: No prior study is available for comparison. FINDINGS: The vertebral bodies are normally aligned. There is no fracture or compression deformity. The intervertebral disc spaces are maintained. Mild facet osteoarthritis is present in the lower lumbar spine. The sacroiliac joints are normal. Procedure Note Wicho Juan MD - 05/27/2018 EXAMINATION: XR LUMBAR SPINE 2 OR 3VW HISTORY: R76.0: Histone antibody positive M70.62: Trochanteric bursitis, left hip M35.00: Sicca syndrome COMPARISON: No prior study is available for comparison. FINDINGS: The vertebral bodies are normally aligned. There is no fracture or compression deformity. The intervertebral disc spaces are maintained.Mild facet osteoarthritis is present in the lower lumbar spine. Thesacroiliac joints are normal. IMPRESSION: 1.No acute fracture or subluxation identified. 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 Dictated by Kodak Bah MD (technical operations vice president). Dr. WICHO Osman MD have personally reviewed and interpreted this examination/study. This report was electronically signed by WICHO JUAN MD on05/27/2018 3:50 PM . Carmen Carlton MD DIAGNOSTIC KIMBER[place] GING ORDERABLES * CBC W/O DIFFERENTIAL (04/06/2018 3:15 PM CDT) Only the most recent of2 resultswithin the time period is included. Pathologist [facility] White Blood Cell Count 6.5 3.8 - 10.8 Thousand/u L [facility] RBC 4.25 3.80 - 5.10 Million/uL [facility] Hemoglobin 12.6 11.7 - 15.5 g/dL [facility] Hematocrit 38.3 35.0 - 45.0 % [facility] MCV 90.1 80.0 - 100.0 fL [facility] MCH 29.6 27.0 - 33.0 pg [facility] MCHC 32.9 32.0 - 36.0 g/dL [facility] RDW 12.5 11.0 - 15.0 % [facility] Platelet Count 247 140 - 400 Thousand/u L [facility] MPV 10.5 7.5 - 12.5 fL [facility] Comment: Test Performed at: [facility] [address] [place] [address] DENNISE EDGE DO,MPH Blood BLOOD SPECIMEN / Unknown 04/06/2018 3:15 PM CDT 04/06/2018 3:16 PM CDT Carmen Carlton MD LAB - HEMATOLO GY ORDERABLES Performing Organization Address City/[facility]/ZIP Co de Phone Number [facility] [address] [place] [address] * DNA ANTIBODY DS CRITHIDIA IFA (09/11/2017 4:06 PM BAR ATTENDANT) Pathologist [facility] dsDNA Antibody Crithidia IFA NEGATIVE NEGATIVE [facility] ([facility]) Comment: Test Performed at: [facility] [address] [place] [address] KEVIN ORTIZ MD PHD 09/11/2017 4:06 PM BAR ATTENDANT 09/11/2017 4:06 PM BAR ATTENDANT Carmen Carlton MD LAB - SEROLOGY ORDERABLES [facility] ([facility]) * (ABNORMAL) URINALYSIS W/MICROSCOPIC NO CULTURE (09/11/2017 4:06 PM BAR ATTENDANT) Pathologist [facility] Color UA YELLOW YELLOW [facility] ([facility]) Appearance CLEAR CLEAR [facility] ([facility]) Specific [place] UA 1.005 1.001 - 1.035 [facility] ([facility]) pH Urine 6.5 5.0 - 8.0 [facility] ([facility]) Glucose UA NEGATIVE NEGATIVE [facility] ([facility]) Bilirubin UA NEGATIVE NEGATIVE [facility] ([facility]) Ketone UA NEGATIVE NEGATIVE [facility] ([facility]) Blood UA NEGATIVE NEGATIVE [facility] ([facility]) Protein UA NEGATIVE NEGATIVE [facility] ([facility]) Nitrite UA NEGATIVE NEGATIVE [facility] ([facility]) Leukocyte Esterase 1+(A) NEGATIVE [facility] ([facility]) WBC Urine 0-5 < OR = 5 /HPF [facility] ([facility]) RBC Urine 0-2 < OR = 2 /HPF [facility] ([facility]) Squamous Epithelial Cells UA 0-5 < OR = 5 /HPF [facility] ([facility]) Bacteria UA NONE SEEN NONE SEEN /HPF [facility] ([facility]) Hyaline Casts UA NONE SEEN NONE SEEN /LPF [facility] ([facility]) Comment: Test Performed at: [facility] [place] [address] DENNISE EDGE DO,MPH 09/11/2017 4:06 PM BAR ATTENDANT 09/11/2017 4:06 PM BAR ATTENDANT Carmen Carlton MD LAB - URINALYS IS ORDERABLES [facility] ([facility]) * CHROMATIN ANTIBODY (09/11/2017 4:06 PM BAR ATTENDANT) Pathologist [facility] Chromatin Nucleosomal <1.0 NEG <1.0 NEG AI [facility] ([facility]) Comment: Test Performed at: [place] [address] DENNISE EDGE DO,MPH 09/11/2017 4:06 PM BAR ATTENDANT 09/11/2017 4:06 PM BAR ATTENDANT Carmen Carlton MD LAB - SEROLOGY ORDERABLES [facility] ([facility]) * HEPATITIS C REAL-TIME PCR QUANTASURE (09/11/2017 4:06 PM BAR ATTENDANT) Hepatitis C Virus RNA PCR Quantitative <15 NOT DETECTED <15 IU/mL [facility] ([facility]) Hepatitis C Virus RNA Log IU/mL <1.18 NOT DETECTED <1.18 Log IU/mL [facility] ([facility]) See Note [facility] ([facility]) Comment: The analytical performance characteristics of this assay have been determined by [employer]. The modifications have not been cleared or approved by the FDA. This assay has been validated pursuant to the CLIA regulations and is used for clinical purposes. This test was performed using the JOSE MANUEL(R)AmpliPrep/ JOSE MANUEL(R)TaqMan(R)HCV Test,v2.0. For more information on this test, go to: http://education.FilaExpress/faq/HLK74h9 (This link is being provided for informational/ educational purposes only.) Test Performed at: [place] [address] DENNISE EDGE DO,MPH 09/11/2017 4:06 PM BAR ATTENDANT 09/11/2017 4:06 PM BAR ATTENDANT Carmen Carlton MD LAB - SEROLOGY ORDERABLES Performing Organization Address [facility]/ZIP Co de Phone Number [facility] ([facility]) * (ABNORMAL) C3, C4, COMPLEMENT CH50 (09/11/2017 4:06 PM BAR ATTENDANT) Complement C3 114 90 - 180 mg/dL [facility] ([facility]) Complement C4 31 16 - 47 mg/dL [facility] ([facility]) Complement Total CH50 >60(H) 31 - 60 U/mL [facility] ([facility]) Comment: Test Performed at: [facility] [address] [place] [address] DENNISE EDGE DO,MPH 09/11/2017 4:06 PM BAR ATTENDANT 09/11/2017 4:06 PM BAR ATTENDANT Carmen Carlton MD LAB - CHEMISTR Y ORDERABLES [facility] ([facility]) * URIC ACID BLOOD (09/11/2017 4:06 PM BAR ATTENDANT) Uric acid 3.4 2.5 - 7.0 mg/dL [facility] ([facility]) Comment: Therapeutic target for gout patients: <6.0 mg/dL Test Performed at: [facility] [employer] [facility] [place] [address] [place] [address] DENNISE EDGE DO,MPH 09/11/2017 4:06 PM BAR ATTENDANT 09/11/2017 4:06 PM BAR ATTENDANT Carmen Carlton MD LAB - CHEMISTR Y ORDERABLES Performing Organization Address [facility] de Phone Number [facility] ([facility]) * CARDIOLIPIN ANTIBODY IGA (09/11/2017 4:06 PM BAR ATTENDANT) Cardiolipin Antibody IgA <11 <=11 APL [facility] ([facility]) Comment: Cardiolipin Ab (IgA) Reference range: Value Units Interpretation <=11 APL Negative 12-20 APL Indeterminate 21-80 APL Low to Medium Positive >80 APL High Positive Test Performed at: [facility] [address] AGNIESZKA DOHERTY MD,PHD 09/11/2017 4:06 PM BAR ATTENDANT 09/11/2017 4:06 PM BAR ATTENDANT Carmen Carlton MD LAB - SEROLOGY ORDERABLES Performing Organization Address [facility] Phone Number [facility] ([facility]) * CARDIOLIPIN ANTIBODY IGM (09/11/2017 4:06 PM BAR ATTENDANT) Cardiolipin Antibody IgM <12 <=12 MPL [facility] ([facility]) Comment: Cardiolipin Ab (IgM) Reference range: Value Units Interpretation <=12 MPL Negative 13-20 MPL Indeterminate 21-80 MPL Low to Medium Positive >80 MPL High Positive Test Performed at: [facility] [employer] [facility]/[employer] [address] [place] [address] AGNIESZKA DOHERTY MD,PHD 09/11/2017 4:06 PM BAR ATTENDANT 09/11/2017 4:06 PM BAR ATTENDANT Carmen Carlton MD LAB - SEROLOGY ORDERABLES Performing Organization Address [facility] de Phone Number [facility] ([facility]) * CARDIOLIPIN ANTIBODY IGG (09/11/2017 4:06 PM BAR ATTENDANT) Cardiolipin Antibody IgG <14 <=14 GPL [facility] ([facility]) Comment: Cardiolipin Ab (IgG) Reference range: Value Units Interpretation <=14 GPL Negative 15-20 GPL Indeterminate 21-80 GPL Low to Medium Positive >80 GPL High Positive Test Performed at: [facility] [address] AGNIESZKA DOHERTY MD,PHD 09/11/2017 4:06 PM BAR ATTENDANT 09/11/2017 4:06 PM BAR ATTENDANT Carmen Carlton MD LAB - SEROLOGY ORDERABLES Performing Organization Address [facility]/ZIP Co de Phone Number [facility] ([facility]) * LUPUS ANTICOAGULANT PANEL W RFLX (09/11/2017 4:06 PM BAR ATTENDANT) Pathologist [facility] Lupus Anticoagulant see note [facility] ([facility]) Comment: A Lupus Anticoagulant is not detected. Reference Range: Not Detected http://education.[employer]Express/faq/LupusAnticoag This interpretation is based on the following test results. PTT Lupus Anticoagulant 39 <=40 sec [facility] ([facility]) Interpretation Not Indicated [facility] ([facility]) dRVVT Screen 41 <=45 sec [facility] ([facility]) Comment: Test Performed at: [facility]/[employer] AGNIESZKA DOHERTY MD,PHD 09/11/2017 4:06 PM BAR ATTENDANT 09/11/2017 4:06 PM BAR ATTENDANT Carmen Carlton MD LAB - HEMATOLO GY ORDERABLES Performing Organization Address [facility]/ZIP Co de Phone Number [facility] ([facility]) * BETA-2 GLYCOPROTEIN 1 ANTIBODY IGG/IGM/IGA PANEL (09/11/2017 4:06 PM BAR ATTENDANT) Beta-2 Glycoprotein 1 Antibody 1 IgG <9 <=20 SGU [facility] ([facility]) Beta-2 Glycoprotein 1 Antibody IgM <9 <=20 [facility] ([facility]) Beta-2 Glycoprotein 1 Antibody IgA <9 <=20 HORACIO [facility] ([facility]) Comment: The Antiphospholipid Antibody Syndrome (APS) is a clinical-pathologic correlation that includes a clinical event (e.g. thrombosis, loss, thrombocytopenia) and persistent positive Antiphospholipid Antibodies (IgM or IgG EVAN >40 MPL/GPL, IgM or IgG anti-B2GPI antibodies, or a Lupus Anticoagulant). The IgA isotype has been implicated in smaller studies, but have not yet been incorporated into the APS criteria. International consensus guidelines suggest waiting at least 12 weeks before retesting to confirm antibody persistence. Reference J Thromb Haemost 2006: 4; 295 For more information on this test, go to http://education.[employer]aExpress/faq/THM822 Test Performed at: [facility] [address] [address] AGNIESZKA DOHERTY MD,PHD 09/11/2017 4:06 PM BAR ATTENDANT 09/11/2017 4:06 PM BAR ATTENDANT Carmen Carlton MD LAB - SEROLOGY ORDERABLES Performing Organization Address [facility] Co de Phone Number [facility] ([facility]) * MORGAN (SM) ANTIBODY DEANNA (09/11/2017 4:06 PM BAR ATTENDANT) DEANNA Morgan (SM) Antibody <1.0 NEG <1.0 NEG AI [facility] ([facility]) Comment: Test Performed at: [facility] [address] [place] [address] DENNISE EDGE DO,MPH 09/11/2017 4:06 PM BAR ATTENDANT 09/11/2017 4:06 PM BAR ATTENDANT Carmen Carlton MD LAB - CHEMISTR Y ORDERABLES Performing Organization Address City/[facility]/ZIP Co de Phone Number [facility] ([facility]) * MACHINE WIPER ANTIBODY (09/11/2017 4:06 PM BAR ATTENDANT) Pathologist [facility] DEANNA MACHINE WIPER Antibody <1.0 NEG <1.0 NEG AI [facility] ([facility]) Comment: Test Performed at: [place] [address] DENNISE EDGE DO,MPH 09/11/2017 4:06 PM BAR ATTENDANT 09/11/2017 4:06 PM BAR ATTENDANT Carmen Carlton MD LAB - CHEMISTR Y ORDERABLES [facility] ([facility]) * RHEUMATOID FACTOR BLOOD QUANTITATIVE (09/11/2017 4:06 PM BAR ATTENDANT) [facility] Rheumatoid Factor <14 <14 IU/mL [facility] ([facility]) Comment: Test Performed at: [address] [employer] [address] DENNISE EDGE DO,MPH 09/11/2017 4:06 PM BAR ATTENDANT 09/11/2017 4:06 PM BAR ATTENDANT Carmen Carlton MD LAB - CHEMISTR Y ORDERABLES Performing Organization Address [facility]/ZIP Co de Phone Number [facility] ([facility]) * KANDICE BLOOD SCREEN W/REFLEX TITER (09/11/2017 4:06 PM BAR ATTENDANT) [facility] KANDICE Screen NEGATIVE NEGATIVE [facility] ([facility]) Comment: KANDICE IFA is a first line screen for detecting the presence of up to approximately 150 autoantibodies in various autoimmune diseases. A negative KANDICE IFA result suggests KANDICE-associated autoimmune diseases are not present at this time. Visit Physician FAQs for interpretation of all antibodies in the [place], prevalence, and association with diseases at http://education.[employer]/ faq/FKF163 Test Performed at: [facility] [address] [place] [address] DENNISE EDGE DO,MPH 09/11/2017 4:06 PM BAR ATTENDANT 09/11/2017 4:06 PM BAR ATTENDANT Carmen Carlton MD LAB - CHEMISTR Y ORDERABLES Performing Organization Address [facility] de Phone Number [facility] ([facility]) * SS-A/SS-B (SJOGRENS) ANTIBODY PANEL (09/11/2017 4:06 PM BAR ATTENDANT) Sjogren's Antibodies (SSA) <1.0 NEG <1.0 NEG AI [facility] ([facility]) Sjogren's Antibodies (SSB) <1.0 NEG <1.0 NEG AI [facility] ([facility]) Comment: Test Performed at: [facility] [address] DENNISE EDGE DO,MPH 09/11/2017 4:06 PM BAR ATTENDANT 09/11/2017 4:06 PM BAR ATTENDANT Carmen Carlton MD LAB - CHEMISTR Y ORDERABLES Performing Organization Address [facility] Phone Number [facility] ([facility]) * THYROID PEROXIDASE ANTIBODY (09/11/2017 4:06 PM BAR ATTENDANT) Thyroid Peroxidase TPO Antibody 1 <9 IU/mL [facility] ([facility]) Comment: Test Performed at: [employer] [address] DENNISE EDGE DO,MPH 09/11/2017 4:06 PM BAR ATTENDANT 09/11/2017 4:06 PM BAR ATTENDANT Carmen Carlton MD LAB - CHEMISTR Y ORDERABLES Performing Organization Address [facility] de Phone Number [facility] ([facility]) * THYROGLOBULIN ANTIBODY (09/11/2017 4:06 PM BAR ATTENDANT) Thyroglobulin Antibody <1 < or = 1 IU/mL [facility] ([facility]) Comment: Test Performed at: [employer] [address] DENNISE EDGE DO,MPH 09/11/2017 4:06 PM BAR ATTENDANT 09/11/2017 4:06 PM BAR ATTENDANT Carmen Carlton MD LAB - CHEMISTR Y ORDERABLES Performing Organization Address [facility] de Phone Number [facility] ([facility]) * SCLERODERMA 70 (SCL) ANTIBODY (09/11/2017 4:06 PM BAR ATTENDANT) DEANNA SCL-70 Antibody <1.0 NEG <1.0 NEG AI [facility] ([facility]) Comment: Test Performed at: [facility] [address] DENNISE EDGE DO,MPH 09/11/2017 4:06 PM BAR ATTENDANT 09/11/2017 4:06 PM BAR ATTENDANT Carmen Carlton MD LAB - CHEMISTR Y ORDERABLES Performing Organization Address [facility] de Phone Number [facility] ([facility]) * CYCLIC CITRUL PEPTIDE AB IGG (CCP) (09/11/2017 4:06 PM BAR ATTENDANT) Cyclic Citrullinated Peptide Antibody 17 UNITS [facility] ([facility]) Comment: Reference Range Negative: <20 Weak Positive: 20-39 Moderate Positive: 40-59 Strong Positive: >59 Test Performed at: [facility] [address] DENNISE EDGE DO,MPH 09/11/2017 4:06 PM BAR ATTENDANT 09/11/2017 4:06 PM BAR ATTENDANT Carmen Carlton MD LAB - CHEMISTR Y ORDERABLES Performing Organization Address [facility] de Phone Number [facility] ([facility]) * HEPATITIS B SURFACE ANTIGEN W RFLX CONFIRMATION (09/11/2017 4:06 PM BAR ATTENDANT) Hepatitis B Virus Surface Antigen NON-REACTI VE NON-REACT GOVIND [facility] ([facility]) Comment: Test Performed at: [facility] [address] DENNISE EDGE DO,MPH 09/11/2017 4:06 PM BAR ATTENDANT 09/11/2017 4:06 PM BAR ATTENDANT Carmen Carlton MD LAB - CHEMISTR Y ORDERABLES Performing Organization Address [facility] de Phone Number [facility] ([facility]) * CK BLOOD (09/11/2017 4:06 PM BAR ATTENDANT) CK Total 52 29 - 143 U/L [facility] ([facility]) Comment: Test Performed at: [employer] [address] [address] DENNISE EDGE DO,MPH 09/11/2017 4:06 PM BAR ATTENDANT 09/11/2017 4:06 PM BAR ATTENDANT Carmen Carlton MD LAB - CHEMISTR Y ORDERABLES Performing Organization Address [facility] Phone Number [facility] ([facility]) * TSH (09/11/2017 4:06 PM BAR ATTENDANT) Pathologist [facility] TSH 1.84 0.40 - 4.50 mIU/L [facility] ([facility]) Comment: Test Performed at: [place] [address] DENNISE EDGE DO,MPH 09/11/2017 4:06 PM BAR ATTENDANT 09/11/2017 4:06 PM BAR ATTENDANT Carmen Carlton MD LAB - CHEMISTR Y ORDERABLES Performing Organization Address [facility] Phone Number [facility] ([facility]) * T4 FREE (09/11/2017 4:06 PM BAR ATTENDANT) Pathologist [facility] T4 Free 1.2 0.8 - 1.8 ng/dL [facility] ([facility]) Comment: Test Performed at: [place] [address] DENNISE EDGE DO,MPH 09/11/2017 4:06 PM BAR ATTENDANT 09/11/2017 4:06 PM BAR ATTENDANT Carmen Carlton MD LAB - CHEMISTR Y ORDERABLES Performing Organization Address [facility] Co de Phone Number [facility]) * XR HAND RIGHT 2VW (09/11/2017 2:45 PM BAR ATTENDANT) Anatomical Region Laterality Modality Wrist / Hand Other Impressions 09/11/2017 3:17 PM BAR ATTENDANT IMPRESSION: 1. Right hand: No arthritis. 2. Left hand: No arthritis. 3. Right shoulder: No arthritis. 4. Left shoulder: A 13 x 4 mm calcification adjacent to the humeral head compatible with calcific tendinitis of the rotator cuff. Otherwise no evidence of arthritis. This report was electronically signed by WICHO JUAN MD on 09/11/2017 3:17 PM . Narrative 09/11/2017 3:17 PM BAR ATTENDANT Exam: 1. Right hand 3 view 2. Left hand 3 view 3. Right shoulder 2 view 4. Left shoulder 2 view History: arthralgia Comparison: None. Findings: Right hand: There is no fracture or dislocation. The joint spaces are normal. No erosions are present. Bone mineralization is normal. The soft tissues are normal. Left hand: There is no fracture or dislocation. The joint spaces are normal. No erosions are present. Bone mineralization is normal. The soft tissues are normal. Right shoulder: There is no fracture. There is no acromioclavicular or glenohumeral arthritis. No erosions are seen. Left shoulder: No fracture is present. There is no acromioclavicular or glenohumeral arthritis. No erosions are seen. A 13 x 4 mm calcification is seen along the lateral aspect of the humeral head, probably representing calcific tendinitis of the rotator cuff. Procedure Note Wicho Juan MD - 01/29/2018 Exam: 1. Right hand 3 view 2. Left hand 3 view 3. Right shoulder 2 view 4. Left shoulder 2 view History: arthralgia Comparison: None. Findings: Right hand: There is no fracture or dislocation. The joint spaces are normal. Noerosions are present. Bone mineralization is normal. The soft tissues arenormal. Left hand: There is no fracture or dislocation. The joint spaces are normal. Noerosions are present. Bone mineralization is normal. The soft tissues arenormal. Right shoulder: There is no fracture. There is no acromioclavicular or glenohumeralarthritis. No erosions are seen. Left shoulder: No fracture is present. There is no acromioclavicular or glenohumeralarthritis. No erosions are seen. A 13 x 4 mm calcification is seen alongthe lateral aspect of the humeral head, probably representing calcifictendinitis of the rotator cuff. IMPRESSION IMPRESSION: 1. Right hand: No arthritis. 2. Left hand: No arthritis. 3. Right shoulder: No arthritis. 4. Left shoulder: A 13 x 4 mm calcification adjacent to the humeral headcompatible with calcific tendinitis of the rotator cuff. Otherwise noevidence of arthritis. This report was electronically signed by WICHO JUAN MD on09/11/2017 3:17 PM . Carmen Carlton MD [facility] ORDERABLES * XR HAND LEFT 2VW (09/11/2017 2:45 PM BAR ATTENDANT) Anatomical Region Laterality Modality Wrist / Hand Other Impressions 09/11/2017 3:17 PM BAR ATTENDANT IMPRESSION: 1. Right hand: No arthritis. 2. Left hand: No arthritis. 3. Right shoulder: No arthritis. 4. Left shoulder: A 13 x 4 mm calcification adjacent to the humeral head compatible with calcific tendinitis of the rotator cuff. Otherwise no evidence of arthritis. This report was electronically signed by WICHO JUAN MD on 09/11/2017 3:17 PM . Narrative 09/11/2017 3:17 PM BAR ATTENDANT Exam: 1. Right hand 3 view 2. Left hand 3 view 3. Right shoulder 2 view 4. Left shoulder 2 view History: arthralgia Comparison: None. Findings: Right hand: There is no fracture or dislocation. The joint spaces are normal. No erosions are present. Bone mineralization is normal. The soft tissues are normal. Left hand: There is no fracture or dislocation. The joint spaces are normal. No erosions are present. Bone mineralization is normal. The soft tissues are normal. Right shoulder: There is no fracture. There is no acromioclavicular or glenohumeral arthritis. No erosions are seen. Left shoulder: No fracture is present. There is no acromioclavicular or glenohumeral arthritis. No erosions are seen. A 13 x 4 mm calcification is seen along the lateral aspect of the humeral head, probably representing calcific tendinitis of the rotator cuff. Procedure Note Wicho Juan MD - 01/29/2018 Exam: 1. Right hand 3 view 2. Left hand 3 view 3. Right shoulder 2 view 4. Left shoulder 2 view History: arthralgia Comparison: None. Findings: Right hand: There is no fracture or dislocation. The joint spaces are normal. Noerosions are present. Bone mineralization is normal. The soft tissues arenormal. Left hand: There is no fracture or dislocation. The joint spaces are normal. Noerosions are present. Bone mineralization is normal. The soft tissues arenormal. Right shoulder: There is no fracture. There is no acromioclavicular or glenohumeralarthritis. No erosions are seen. Left shoulder: No fracture is present. There is no acromioclavicular or glenohumeralarthritis. No erosions are seen. A 13 x 4 mm calcification is seen alongthe lateral aspect of the humeral head, probably representing calcifictendinitis of the rotator cuff. IMPRESSION IMPRESSION: 1. Right hand: No arthritis. 2. Left hand: No arthritis. 3. Right shoulder: No arthritis. 4. Left shoulder: A 13 x 4 mm calcification adjacent to the humeral headcompatible with calcific tendinitis of the rotator cuff. Otherwise noevidence of arthritis. This report was electronically signed by WICHO JUAN MD on09/11/2017 3:17 PM . Carmen Carlton MD [facility] ORDERABLES * XR SHOULDER RIGHT 2VW OR MORE (09/11/2017 2:45 PM BAR ATTENDANT) Anatomical Region Laterality Modality Upper Extremity Other Impressions 09/11/2017 3:17 PM BAR ATTENDANT IMPRESSION: 1. Right hand: No arthritis. 2. Left hand: No arthritis. 3. Right shoulder: No arthritis. 4. Left shoulder: A 13 x 4 mm calcification adjacent to the humeral head compatible with calcific tendinitis of the rotator cuff. Otherwise no evidence of arthritis. This report was electronically signed by WICHO JUAN MD on 09/11/2017 3:17 PM . Narrative 09/11/2017 3:17 PM BAR ATTENDANT Exam: 1. Right hand 3 view 2. Left hand 3 view 3. Right shoulder 2 view 4. Left shoulder 2 view History: arthralgia Comparison: None. Findings: Right hand: There is no fracture or dislocation. The joint spaces are normal. No erosions are present. Bone mineralization is normal. The soft tissues are normal. Left hand: There is no fracture or dislocation. The joint spaces are normal. No erosions are present. Bone mineralization is normal. The soft tissues are normal. Right shoulder: There is no fracture. There is no acromioclavicular or glenohumeral arthritis. No erosions are seen. Left shoulder: No fracture is present. There is no acromioclavicular or glenohumeral arthritis. No erosions are seen. A 13 x 4 mm calcification is seen along the lateral aspect of the humeral head, probably representing calcific tendinitis of the rotator cuff. Procedure Note Wicho Juan MD - 01/29/2018 Exam: 1. Right hand 3 view 2. Left hand 3 view 3. Right shoulder 2 view 4. Left shoulder 2 view History: arthralgia Comparison: None. Findings: Right hand: There is no fracture or dislocation. The joint spaces are normal. Noerosions are present. Bone mineralization is normal. The soft tissues arenormal. Left hand: There is no fracture or dislocation. The joint spaces are normal. Noerosions are present. Bone mineralization is normal. The soft tissues arenormal. Right shoulder: There is no fracture. There is no acromioclavicular or glenohumeralarthritis. No erosions are seen. Left shoulder: No fracture is present. There is no acromioclavicular or glenohumeralarthritis. No erosions are seen. A 13 x 4 mm calcification is seen alongthe lateral aspect of the humeral head, probably representing calcifictendinitis of the rotator cuff. IMPRESSION IMPRESSION: 1. Right hand: No arthritis. 2. Left hand: No arthritis. 3. Right shoulder: No arthritis. 4. Left shoulder: A 13 x 4 mm calcification adjacent to the humeral headcompatible with calcific tendinitis of the rotator cuff. Otherwise noevidence of arthritis. This report was electronically signed by WICHO JUAN MD on09/11/2017 3:17 PM . Carmen Carlton MD [facility] ORDERABLES * XR SHOULDER LEFT 2VW OR MORE (09/11/2017 2:45 PM BAR ATTENDANT) Anatomical Region Laterality Modality Upper Extremity Other Impressions 09/11/2017 3:17 PM BAR ATTENDANT IMPRESSION: 1. Right hand: No arthritis. 2. Left hand: No arthritis. 3. Right shoulder: No arthritis. 4. Left shoulder: A 13 x 4 mm calcification adjacent to the humeral head compatible with calcific tendinitis of the rotator cuff. Otherwise no evidence of arthritis. This report was electronically signed by WICHO JUAN MD on 09/11/2017 3:17 PM . Narrative 09/11/2017 3:17 PM BAR ATTENDANT Exam: 1. Right hand 3 view 2. Left hand 3 view 3. Right shoulder 2 view 4. Left shoulder 2 view History: arthralgia Comparison: None. Findings: Right hand: There is no fracture or dislocation. The joint spaces are normal. No erosions are present. Bone mineralization is normal. The soft tissues are normal. Left hand: There is no fracture or dislocation. The joint spaces are normal. No erosions are present. Bone mineralization is normal. The soft tissues are normal. Right shoulder: There is no fracture. There is no acromioclavicular or glenohumeral arthritis. No erosions are seen. Left shoulder: No fracture is present. There is no acromioclavicular or glenohumeral arthritis. No erosions are seen. A 13 x 4 mm calcification is seen along the lateral aspect of the humeral head, probably representing calcific tendinitis of the rotator cuff. Procedure Note Wicho Juan MD - 01/29/2018 Exam: 1. Right hand 3 view 2. Left hand 3 view 3. Right shoulder 2 view 4. Left shoulder 2 view History: arthralgia Comparison: None. Findings: Right hand: There is no fracture or dislocation. The joint spaces are normal. Noerosions are present. Bone mineralization is normal. The soft tissues arenormal. Left hand: There is no fracture or dislocation. The joint spaces are normal. Noerosions are present. Bone mineralization is normal. The soft tissues arenormal. Right shoulder: There is no fracture. There is no acromioclavicular or glenohumeralarthritis. No erosions are seen. Left shoulder: No fracture is present. There is no acromioclavicular or glenohumeralarthritis. No erosions are seen. A 13 x 4 mm calcification is seen alongthe lateral aspect of the humeral head, probably representing calcifictendinitis of the rotator cuff. IMPRESSION IMPRESSION: 1. Right hand: No arthritis. 2. Left hand: No arthritis. 3. Right shoulder: No arthritis. 4. Left shoulder: A 13 x 4 mm calcification adjacent to the humeral headcompatible with calcific tendinitis of the rotator cuff. Otherwise noevidence of arthritis. This report was electronically signed by WICHO JUAN MD on09/11/2017 3:17 PM . Carmen Carlton MD [facility] ORDER[facility]LES * XR CERVICAL SPINE 2 OR 3VW (09/11/2017 2:45 PM BAR ATTENDANT) Anatomical Region Laterality Modality Spine Other Impressions 09/11/2017 4:33 PM BAR ATTENDANT IMPRESSION: Mild degenerative disease of the cervical spine. No acute fracture Dictated by Brinda King MD (technical operations vice president). This report was approved by Brinda King on 09/11/2017 4:10 PM . IDr. GALA M.D. have personally reviewed and interpreted this examination/study. This report was electronically signed by GALA QUILES M.D. on 09/11/2017 4:33 PM . Narrative 09/11/2017 4:33 PM BAR ATTENDANT EXAMINATION: XR SPINE CERVICAL 2 OR 3 VIEWS HISTORY: chronic neck pain FINDINGS: No prior study is available for comparison at the time of this dictation. The vertebral bodies are normally aligned. No acute fracture or compression deformity is identified. Mild multilevel narrowing or intervertebral disc spaces seen, greatest at C5-6 and C6-7. The predental interval and prevertebral soft tissues are normal. Bone density and texture are normal. Procedure Note Gala Quiles MD - 01/29/2018 EXAMINATION: XR SPINE CERVICAL 2 OR 3 VIEWS HISTORY: chronic neck pain FINDINGS: No prior study is available for comparison at the time of thisdictation. The vertebral bodies are normally aligned. No acute fracture orcompression deformity is identified. Mild multilevel narrowing orintervertebral disc spaces seen, greatest at C5-6 and C6-7. The predentalinterval and prevertebral soft tissues are normal. Bone density and texture are normal. IMPRESSION IMPRESSION: Mild degenerative disease of the cervical spine. No acute fracture Dictated by Brinda King MD (technical operations vice president). This report was approved by Brinda King on 09/11/2017 4:10 PM . I, Dr. GALA QUILES M.D. have personally reviewed and interpreted thisexamination/study. This report was electronically signed by GALA QUILES M.D. on 09/11/20174:33 PM . Carmen Carlton MD [facility] ORDERABLES * PATHOLOGY/GENETICS HISTORICAL-ONBASE (05/19/2016) 05/19/2016 Rebecca Box APRN-HAUL DRIVER LAB - CHEMI STRY ORDERABLES Performing Organization Address [facility]/ZIP Co de Phone Number [place] [phone] * PH FLUID - POCT (AMB) U (10/16/2015) pH Vaginal 5.0 [facility] Vaginal swab (specimen) 10/16/2015 Jerri Bhat MD LAB - POINT OF CAR E ORDERABLES [facility] * WET PREP - POINT OF CARE (AMB) [facility] (10/16/2015) pH Wet Prep 5.0 [facility] Yeast Wet Prep neg [facility] Trichomonas Wet Prep neg [facility] Bacteria Wet Prep neg [facility] Whiff Test neg [facility] 10/16/2015 Jerri Bhat MD LAB - POINT OF CAR E ORDERABLES [facility] * FUNGUS CLAUDIA - POINT OF CARE (AMB) [facility] (10/16/2015) CLAUDIA Prep neg [facility] Fluid specimen (specimen) 10/16/2015 Jerri Bhat MD LAB - POINT OF CAR E ORDERABLES [facility] * CULTURE YEAST WITH DIRECT FLUORESCENT CLAUDIA (10/16/2015) Smear SEE NOTE [facility]) Comment: CULTURE, YEAST, W/DIRECT FLUORESCENT CLAUDIA MICRO NUMBER: [id number] TEST STATUS: FINAL SPECIMEN SOURCE: VAGINAL SPECIMEN QUALITY: ADEQUATE SMEAR: No fungal elements seen. RESULT: No growth after 14 days Test Performed at: [facility] [id number] KATELYN WILLIAMSON MD Other (qualifier value) 10/16/2015 10/17/2015 3:55 AM BAR ATTENDANT Narrative [facility]) - 10/31/2015 6:00 AM BAR ATTENDANT Please check sensitivities for positive yeast culture. Specimen Type->Other vaginal Jerri Bhat MD LAB - MICROBIOLOGY ORDERABLES [facility]) Care Teams School Based Therapist Relationship Specialty Start Date End Date Tim Harris MD [address] [place] [phone] PCP - General Family Medicine 11/26/16
--- OUTSIDE RECORDS SUMMARY | 2024-12-28 01:05 | XMS_ITS | CONTINUITY OF CARE DOCUMENT ---
Author Name naren sneed Address Unknown Organization [facility] Address [address] [place] [address] [address] [place] [address] Phone [phone] Care Team Providers Care Dredge Pipe Operator Name Role Phone naren sneed Unavailable Unavailable
--- OUTSIDE RECORDS SUMMARY | 2024-12-28 01:05 | XMS_ITS | Referral Summary ---
Author Organization [facility] [address] Address [address] [place] [address] Care Team Providers Care Pants Busheler Name Role Phone Tim Harris MD Primary Care Provider [phone] Allergies Active Allergy Reactions Criticality Noted Date Comments Adhesive Tape-Silicones Rash Medium 10/17/2015 Codeine Nausea And Vomiting Low 08/12/2016 Guaifenesin Other (See comments) Low 03/10/2013 Dizziness and hallucinations Hydrochlorothiazide Hallucinations Medium 10/17/2015 Midazolam Hcl Nausea And Vomiting Low 08/12/2016 Tussionex Unknown 03/18/2018 Medications raNITIdine (ZANTAC) 300 mg tablet Take 300 mg by mouth. Active imipramine (TOFRANIL) 10 mg tablet 03/15/2018 Active gabapentin (NEURONTIN) 100 mg capsule Take 100 mg by mouth. 02/16/2018 Active pilocarpine (SALAGEN) 5 mg tablet Take 5 mg by mouth. Active ibuprofen (ibuprofen) 200 mg tab/cap Take 200 mg by mouth. Active multivitamin (MULTIPLE VITAMINS) tabletIndication s:Vitamin Deficiency Prevention Take by mouth. Active acidophilus-pect in, citrus 100 million cell-10 mg capsule Take by mouth daily. Active meloxicam (MOBIC) 15 mg tablet Take 15 mg by mouth daily. 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 [id number] [place] [address] Care Teams Pants Busheler Relationship Specialty Start Date End Date Tim Harris MD PCP - General Family Medicine 03/18/18
--- OUTSIDE RECORDS SUMMARY | 2024-12-28 01:05 | XMS_ITS | Clinical Summary ---
Author Organization [facility] Address [address] [place] [address] Phone Care Team Providers Care Paralegal Secretary Name Role Phone Tim Harris MD Primary Care Provider [phone] Allergies Active Allergy Reactions Criticality Noted Date Comments Codeine Unknown 09/06/2015 Adhesive Tape Rash Medium 10/17/2015 Hydrocod Wolf-Chlorphe Wolf Er Hallucinations 1 12/18/2014 Midazolam Unknown 09/06/2015 Medications imipramine (TOFRANIL) 10 MG Tablet Take 30 mg by mouth nightly. 08/17/2015 Active pilocarpine (SALAGEN) 5 MG Tablet 08/30/2015 Active Multiple Vitamin Tablet Take by mouth. Active [place]-3 Fatty Acids (FISH OIL) 600 MG Capsule Take by mouth. Active CALCIUM-VITAMIN D PO Take by mouth. Active BIOTIN FORTE PO Take by mouth. Active Probiotic Product (ACIDOPHILUS/GO AT MILK) Capsule Take 1 Tab by mouth daily. Active gabapentin (NEURONTIN) 100 MG Capsule Take 100 mg by mouth daily. Active Cyanocobalamin (VITAMIN B 12) 100 MCG Lozenge Take 100 mcg by mouth daily. Active VENTOLIN HFA 108 (90 BASE) MCG/ACT Aerosol Solution 09/29/2015 Active lisinopril (PRINIVIL, ZESTRIL) 10 MG Tablet 03/19/2019 Active Magnesium 250 MG Tablet Take 1,000 mg by mouth. Active FAMOTIDINE PO Take 40 mg by mouth daily. Active amLODIPine (NORVASC) 2.5 MG Tablet Take 2.5 mg by mouth nightly. 11/08/2019 Active estradiol (ESTRACE) 0.1 MG/GM Cream 1 g by Vaginal route once a week. 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 Family History Medical History Relation Name Comments Depression Other 1 Diabetes Other 2 Hypertension Other 3 Skin Cancer Other 4 Thyroid Disease Other 5 Osteoporosis Other 6 Stroke Other 7 Relation Name Status Comments Other 1 Other 2 Other 3 Other 4 Other 5 Other 6 Other 7 Social History Tobacco Use Types Packs/Day Years Used Date Smoking Tobacco: Never Smokeless Tobacco: Never Alcohol Use Standard Drinks/Week Comments Yes 1 (1 standard drink = 0.6 oz pur e alcohol) PHQ-2 Answer Date Recorded PHQ-2 Score 0 07/16/2019 Comments Unknown Sex and Gender Information Value Date Recorded Sex Assigned at Not on file Legal Sex Female 2:14 AM CDT Gender Identity Not on file Sexual Orientation Not on file Last Filed Vital Signs Vital Sign Reading Time Taken Comments Blood Pressure 128/62 06/14/2020 11:42 AM CDT Pulse 78 06/14/2020 11:42 AM CDT Temperature 36.8 C (98.2 F) 06/14/2020 11:42 AM CDT Respiratory Rate 18 06/14/2020 11:42 AM CDT Oxygen Saturation 99% 06/14/2020 11:42 AM CDT Inhaled Oxygen Concentration - - Weight 56.8 kg (125 lb 3.2 oz) 06/14/2020 11:42 AM CDT Height 154.9 cm (5' 1) 08/21/2016 10:23 AM CDT Body Mass Index 23.66 08/21/2016 10:23 AM CDT Plan of Treatment Health Maintenance Due Date Last Done Comments Hepatitis C Virus (HCV) Screening 1960 TdaP Immunization 1960 Colonoscopy 2006 Colorectal Cancer Screening 2006 Cologuard 2011 Immunochemical Fecal Occult Blood 2011 Pneumococcal Immunization (50+ years) (1 of 1 - PCV) 2011 Zoster Immunization (1 of 2) 2011 Influenza Immunization (#1) 2024 SARS-COV-2 Immunization ( - 2023-25 season) 2024 Respiratory Syncytial Virus (RSV) Immunization (Adult) (1 - 1-dose 75+ series) 2036 Mammogram Discontinued 07/25/2021, 07/03, 04/04/2019, Additional history exists Hepatitis B Immunization Aged Out No longer eligible based on patient's age to complete this topic Meningococcal Immunization (ACWY) Aged Out No longer eligible based on patient's age to complete this topic Rotavirus Immunization Aged Out No lo nger eligible based on patient's age to complete this topic Procedures Procedure Name Priority Date/Time Associated Diagnosis Comments WILLY SCREENING BILATERAL DIGI FLORENCIO W CAD W KAMILA Routine 07/25/2021 from Last 3 Months or Most Recently Relevant to Health Maintenance Results * WILLY SCREENING BILATERAL DIGITAL W CAD W KAMILA (07/25/2021) Anatomical Region Laterality Modality breast Bilateral Mammography Tim Harris MD IMG MAMMO ORDERABLES Edite d Result - Final from Last 3 Months or Most Recently Relevant to Health Maintenance Insurance [facility] Care Teams Paralegal Secretary Relationship Specialty Start Date End Date Tim Harris MD [address] [place] [address] [address] [place], [place] [phone] PCP - General Family Medicine 09/06/15
--- OUTSIDE RECORDS SUMMARY | 2024-12-28 01:05 | XMS_ITS | Clinical Summary ---
Author Organization [facility] [employer] Address [address] [address] Care Team Providers Care President & Founder Name Role Phone Tim Harris MD Primary Care Provider +1- [phone] Source Comments [facility],non-owned Affiliates and Associated Physician Practices is amultiple site organization consisting of ambulatory clinics and hospital sitesin [place], [place], [place] and [place]. This disclosure is being madepursuant to the Care Everywhere program and may not contain all information available regarding this patient. Last updated 18.[facility] [employer] Allergies Active Allergy Reactions Criticality Noted Date [...] Dispensed Refills Start Date End Date Status Flvjqvp-Haggoslma-Ug nc 167-83-8 MG Take 1 tablet by [...] 09/01/2024 Assessment & Plan (09/27/2024 11:59 AM LANDSCAPING SUPERVISOR): - resolved as of 09/27/2024. 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 Visually [...] [facility] has had time to think [...] 09/01/2024 Assessment & Plan (09/27/2024 11:59 AM LANDSCAPING SUPERVISOR): - continue vaginal estrogen - pt may [...] 02/16/2018 Assessment & Plan (09/27/2024 11:56 AM LANDSCAPING SUPERVISOR): - on gabapentin and imipramine H/O keratoconjunctivitis sicca in Sjogren's synd ghislaine 08/31/2017 Resolved Problems Problem Noted Date Diagnosed Date Resolved Date Encounter for long-term (cur rent) use of other medications 01/24/2019 09/21/2023 Encounter for therapeutic drug monitoring 01/24/2019 09/21/2023 Encounters Date Type Department Care Team Description 11/30/2024 10:30 AM LANDSCAPING SUPERVISOR Office Visit [facility] - INSTALLER HELPER [address] [facility] [address] [place] [address] Jerri Bhat MD Vulvodynia (Primary Dx); Menopausal vaginal dryness; Dyspareunia in female 11/30/2024 Travel 11/30/2024 Telephone [facility] - INSTALLER HELPER [address] [facility] [address] [place] [address] Lluvia Bonner MD Nurse Only 11/21/2024 11:20 AM LANDSCAPING SUPERVISOR Office Visit [facility] - Rheumatology [facility] [place] [address] Carmen Carlton MD Sicca syndrome (HCC) (Primary Dx); Histone antibody positive; Fibromyalgia; Carpal tunnel syndrome of left wrist 11/21/2024 Travel 11/16/2024 Orders Only [facility] - Rheumatology [address] [facility] [place] [address] Carmen Carlton MD 11/10/2024 Refill [facility] - Rheumatology [address] [place] [phone] Carmen Carlton MD Refill Request 09/27/2024 11:30 AM LANDSCAPING SUPERVISOR Office Visit [facility] - INSTALLER HELPER [address] [place] [address] Lluvia Bonner MD Urinary retention (Primary Dx); Vulvodynia; Dysuria 09/27/2024 Travel from Last 3 Months Immunizations Name Administration Dates Next Due INFLUENZA VACCINE, TRIV. (AF LURIA, FLUZONE TRIVALENT; 6MO+) (IIV3) 07/18/2013 INFLUENZA VACCINE 08/02/2018 TDAP (7yrs+) 07/18/2013 iNFLUENZA VACCINE, RECOM-BROWN, QUADR. (FLUBLOCK QUADRIVALENT; 18Y+) (RIV4) 09/04/2020 Family History Medical History Relation Name Comments Diabetes Father Hypertension Father Cancer Maternal Grandfather spine Arthritis Mother Osteoporosis Mother Thyroid Disease Mother Diabetes Paternal Grandmother Relation Name Status Comments Father Maternal Grandfather Maternal Grandmother Mother Paternal Grandfather Paternal Grandmother Social History Tobacco Use Types Packs/Day Years [...] Comments Blood Pressure 122/74 11/30/2024 10:16 AM LANDSCAPING SUPERVISOR Pulse 94 11/30/2024 10:16 AM LANDSCAPING SUPERVISOR Temperature 36.6 C (97.8 F) 11/21/2024 10:56 AM LANDSCAPING SUPERVISOR Respiratory Rate 16 09/02/2021 11:34 AM CDT Oxygen Saturation 99% 11/30/2024 10:16 AM LANDSCAPING SUPERVISOR Inhaled Oxygen Concentration - - Weight 54.2 kg (119 lb 6.4 oz) 11/30/2024 10:16 AM LANDSCAPING SUPERVISOR Height 154.9 cm (5' 1) 11/30/2024 10:16 AM LANDSCAPING SUPERVISOR Body Mass Index 22.56 11/30/2024 10:16 AM LANDSCAPING SUPERVISOR Plan of Treatment Upcoming Encounters Date Type Department Care Team (Late st Contact Info) Description 01/04/2025 11:15 AM LANDSCAPING SUPERVISOR Video Visit [facility] - INSTALLER HELPER [address] [facility] [address] [place] [phone] Lluvia Bonner MD [address] [place], [place] [phone] 11/20/2025 11:20 AM LANDSCAPING SUPERVISOR Office Visit [facility] - Rheumatology [address] [place] [address] Carmen Carlton MD [address] [place] [address] 12/05/2025 10:10 AM LANDSCAPING SUPERVISOR Office Visit [facility] - INSTALLER HELPER [address] [place] [address] Jerri Bhat MD [address] [place] [address] Health Maintenance Due Date Last Done Comments COLOGABENA (AGES 45-75) - COLON CA SCREENING 1961 COLON MONITORING 1961 COLONOSCOPY - COLON CA SCREENING 1961 CT COLONOGRAPHY - COLON CA SCREENING 1961 Colorectal Cancer Screening 1961 FIT - COLON CA SCREENING 1961 FLEX SIG - COLON CA SCREENING 1961 LIPID TESTING 1961 HIV SCREENING 1976 PNEUMOCOCCAL VACCINE 50+ (1 of 1 - PCV) 2011 ZOSTER VACCINE (1 of 2) 2011 DTAP/TDAP/TD VACCINES (2 - T d or Tdap) 07/18/2023 07/18/2013 MAMMOGRAM 07/25/2023 07/25/2021, 04/04/2019, 02/09/2019 (Done Outside Per Patient) COVID-19 VACCINE (3 - 2023-2 5 season) 2024 06/13/2021, 05/16/2021 INFLUENZA VACCINE (#1) 2024 , 08/02/2018, 07/18/2013 PAP with HPV 07/10/2025 07/10/2020 Respiratory Syncytial Virus (RSV) Vaccine Pt: or over 60 yrs (1 - 1-dose 75+ series) 2036 HEPATITIS C SCREENING Completed 09/11/2017 DEPRESSION SCREENING Completed 11/30/2024, 09/27/20 24 HEPATITIS B VACCINE Aged Out No longe r eligible based on patient's age to complete this topic HIB VACCINE Aged Out No longer eligi ble based on patient's age to complete this topic HPV VACCINE Aged Out No longer eligi ble based on patient's age to complete this topic MENINGOCOCCAL (Group B) VACCINE Aged Out No longer eligible based on patient's age to complete this topic MENINGOCOCCAL VACCINE Aged Out No cal sharad eligible based on patient's age to complete this topic Procedures Procedure Name Priority Date/Time Associated Diagnosis Comments HISTONE ANTIBODY 11/16/2024 8:54 AM LANDSCAPING SUPERVISOR C-REACTIVE PROTEIN 11/16/2024 8: 54 AM LANDSCAPING SUPERVISOR URINALYSIS W/MICROSCOPIC REFLEX TO CULTURE 11/16/2024 8:54 AM LANDSCAPING SUPERVISOR CBC W AUTO DIFFERENTIAL 11/16/2024 8:54 AM LANDSCAPING SUPERVISOR ERYTHROCYTE SEDIMENTATION RATE 11/16/2024 8:54 AM LANDSCAPING SUPERVISOR COMPREHENSIVE METABOLIC PANEL 11/16/2024 8:54 AM LANDSCAPING SUPERVISOR CULTURE URINE 11/16/2024 8:54 AM LANDSCAPING SUPERVISOR CULTURE URINE REFLEXED II 11/16/2024 8:54 AM LANDSCAPING SUPERVISOR NC INSERT NON-INDWELLING BLADDER Routine 09/27/2024 12:00 PM LANDSCAPING SUPERVISOR Urinary retention HPV DETECTION HIGH RISK VAN Routine 07/10/2020 4:11 PM CDT Well woman exam with routine gynecological exam HEPATITIS C REAL-TIME PCR QUANTASURE Routine 09/11/2017 4:06 PM LANDSCAPING SUPERVISOR from Last 3 Months or Most Recently Relevant to Health Maintenance Results * CULTURE URINE REFLEXED II (11/16/2024 8:54 AM LANDSCAPING SUPERVISOR) Reflexive Urine Culture See Below [facility] Comment: CULTURE INDICATED - RESULTS TO FOLLOW Test Performed at: [facility] [address] KATELYN WILLIAMSON MD 11/16/2024 8:54 AM LANDSCAPING SUPERVISOR 11/16/2024 8:55 AM LANDSCAPING SUPERVISOR Carmen Carlton MD LAB - MICROBIO LOGY ORDERABLES [address] [address] * (ABNORMAL) URINALYSIS W/MICROSCOPIC REFLEX TO CULTURE (11/16/2024 8:54 AM LANDSCAPING SUPERVISOR) Color UA YELLOW YELLOW [facility] Appearance CLOUDY(A) CLEAR [facility] Specific [place] UA 1.004 1.001 - 1.035 [facility] pH [...] elements seen were reported. Test Performed at: [facility] [address] KATELYN WILLIAMSON MD 11/16/2024 8:54 AM LANDSCAPING SUPERVISOR 11/16/2024 8:55 AM LANDSCAPING SUPERVISOR Carmen Carlton MD LAB - URINALYS IS ORDERABLES Performing Organization Address [facility] de Phone Number [address] [address] * C-REACTIVE PROTEIN (11/16/2024 8:54 AM LANDSCAPING SUPERVISOR) C-Reactive Protein <3.0 <8.0 mg/L [facility] Comment: Test Performed at: [facility] [address] [address] KATELYN WILLIAMSON MD 11/16/2024 8:54 AM LANDSCAPING SUPERVISOR 11/16/2024 8:55 AM LANDSCAPING SUPERVISOR Carmen Carlton MD LAB - CHEMISTR Y ORDERABLES Performing Organization Address [facility] Co de Phone Number [address] [address] * (ABNORMAL) HISTONE ANTIBODY (11/16/2024 8:54 AM LANDSCAPING SUPERVISOR) Histone Antibodies >5.0(H) U [facility] Comment: Value Explanation of Results ------ <1.0 Negative 1.0-1.5 Weak Positive 1.6-2.5 Moderate Positive >2.5 Strong Positive Test Performed at: [facility] [place] [address] [place] [address] KEANU Hafsa CALVIN 11/16/2024 8:54 AM LANDSCAPING SUPERVISOR 11/16/2024 8:55 AM LANDSCAPING SUPERVISOR Carmen Carlton MD LAB - CHEMISTR Y ORDERABLES Performing Organization Address City/[facility]/ZIP Co de Phone Number [address] [address] * CULTURE URINE (11/16/2024 8:54 AM LANDSCAPING SUPERVISOR) Pathologist [facility] Culture [facility] Comment: CULTURE, URINE, ROUTINE Micro Number: [id number] Test Status: Final Specimen Source: Urine Specimen Quality: Adequate Result: No Growth REPORT COMMENT: FASTING:YES Test Performed at: [facility] [address] KATELYN WILLIAMSON MD 11/16/2024 8:54 AM LANDSCAPING SUPERVISOR 11/16/2024 8:55 AM LANDSCAPING SUPERVISOR Carmen Carlton MD LAB - MICROBIO LOGY ORDERABLES Performing Organization Address [facility] Co de Phone Number [address] [address] * ERYTHROCYTE SEDIMENTATION RATE (11/16/2024 8:54 AM LANDSCAPING SUPERVISOR) Pathologist [facility] Erythrocyte Sedimentation Rate Westergren 11 < OR = 30 mm/h [facility] Comment: Test Performed at: [facility] [address] [place] [address] KATELYN WILLIAMSON MD 11/16/2024 8:54 AM LANDSCAPING SUPERVISOR 11/16/2024 8:55 AM LANDSCAPING SUPERVISOR Carmen Carlton MD LAB - HEMATOLO GY ORDERABLES Performing Organization Address [facility] Co de Phone Number [address] [address] * (ABNORMAL) CBC WITH DIFFERENTIAL (11/16/2024 8:54 AM LANDSCAPING SUPERVISOR) White Blood Cell Count 3.8 3.8 - [...] 1.3 % [facility] Comment: Test Performed at: [facility] [address] KATELYN WILLIAMSON MD 11/16/2024 8:54 AM LANDSCAPING SUPERVISOR 11/16/2024 8:55 AM LANDSCAPING SUPERVISOR Carmen Carlton MD LAB - HEMATOLO GY ORDERABLES [facility] [address] [place] [address] * (ABNORMAL) COMPREHENSIVE METABOLIC PANEL (11/16/2024 8:54 AM LANDSCAPING SUPERVISOR) [facility] Glucose 100(H) 65 - 99 mg/dL [facility] [...] 29 U/L [facility] Comment: Test Performed at: [facility] [address] KATELYN WILLIAMSON MD 11/16/2024 8:54 AM LANDSCAPING SUPERVISOR 11/16/2024 8:55 AM LANDSCAPING SUPERVISOR Carmen Carlton MD LAB - CHEMISTR Y ORDERABLES [facility] [address] [place] [address] * NC INSERT NON-INDWELLING BLADDER (09/27/2024 12:00 PM LANDSCAPING SUPERVISOR) Narrative Lluvia Bonner MD - 09/27/2024 12:00 PM LANDSCAPING SUPERVISOR Lluvia Bonner MD 09/27/2024 1:10 PM Procedure [...] RISK VAN (07/10/2020 4:11 PM CDT) Pathologist [facility] High Risk Human Papilloma Result Not Detected Not Detected 07/16/2020 1:52 PM CDT [facility] High Risk Human Papilloma Interp 07/16/2020 1:52 PM CDT [facility] Comment:High Risk Human Pastor lloma Virus was Not Detected. Pathology/Cytolo gy MISCELLANEOUS SAMPLES / Unknown 07/10/2020 4:11 PM CDT 07/12/2020 12:56 PM CDT Narrative [facility] - 07/16/2020 1:52 PM [...] (cytology, histology, and clinical information). Rebecca Box SAFETY PHYSICIAN-FREIGHT UNLOADER LAB - MICRO BIOLOGY ORDERABLES [facility] [address] [phone] * HEPATITIS C REAL-TIME PCR QUANTASURE (09/11/2017 4:06 PM LANDSCAPING SUPERVISOR) Pathologist [facility] Hepatitis C Virus RNA PCR Quantitative <15 NOT DETECTED <15 IU/mL [facility] ([facility]) Hepatitis C Virus RNA Log IU/mL <1.18 NOT DETECTED <1.18 Log IU/mL [facility] ([facility]) See Note [facility] ([facility]) Comment: The analytical performance characteristics of this assay have been determined by [facility]. The modifications have not been cleared or approved by the FDA. This assay has been validated pursuant to the CLIA regulations and is used for clinical purposes. This test was performed using the JOSE MANUEL(R)AmpliPrep/ JOSE MANUEL(R)TaqMan(R)HCV Test,v2.0. For more information on this test, go to: http://education.[employer]/faq/BKS34s5 (This link is being provided for informational/ educational purposes only.) Test Performed at: [facility] [employer] [address] [address] DENNISE EDGE DO,MPH 09/11/2017 4:06 PM LANDSCAPING SUPERVISOR 09/11/2017 4:06 PM LANDSCAPING SUPERVISOR Carmen Carlton MD LAB - SEROLOGY ORDERABLES [facility] ([facility]) from Last 3 Months or Most Recently Relevant to Health Maintenance Care Teams President & Founder Relationship Specialty Start Date End Date Tim Harris MD [facility] [place] [address] PCP - General Family Medicine 11/26/16
--- OUTSIDE RECORDS SUMMARY | 2024-12-28 01:05 | XMS_ITS | Clinical Summary ---
Author Organization [facility] [address] Address [address] [place] [address] Care Team Providers Care Coating Machine Helper Name Role Phone Tim Harris MD Primary Care Provider [phone] Allergies Active Allergy Reactions Criticality Noted Date [...] on file Legal Sex Female 12:29 AM MOLD PREPARER Gender Identity Not on file Sexual Orientation Not on file Obstetrics History Last Filed Vital Signs Vital Sign Reading [...] Treatment Not on file Insurance [employer] Care Teams Coating Machine Helper Relationship Specialty Start Date End Date Tim Harris MD PCP - General Family Medicine 03/18/18
--- OUTSIDE RECORDS SUMMARY | 2024-12-28 01:05 | XMS_ITS | Encounter Summary ---
Author Organization [facility] Address [address] [facility] [place] [address] Care Team Providers Care Cut Lace Machine Operator Name Role Phone Tim Harris MD Primary Care Provider [phone]- [phone] Reason for Visit * Reason Onset Date Comments MEDICATION REFILL 12/13/2019 Encounter Details Date Type Department Care Team (Late st Contact Info) Description 12/13/2019 Refill [facility] [address] [place] [address] Carmen Carlton MD [address] [place] [address] MEDICATION REFILL Social History Tobacco Use Types Packs/Day Years Used Date Smoking Tobacco: Never Smokeless Tobacco: Never Alcohol Use Standard Drinks/Week Comments Yes 1 (1 standard drink = 0.6 oz pur e alcohol) Sex and Gender Information Value Date Recorded Sex Assigned at Not on file Gender Identity Not on file Sexual Orientation Not on file documented as of this encounter Functional Status Functional Status Response Date of [...] person have difficulty concentrating/remembering/making decisions? No 11/27/2016 documented as of this encounter Plan of Treatment Upcoming Encounters Date Type Department Care Team (Late st Contact Info) Description 01/04/2025 11:15 AM EDUCATIONAL ASSISTANT TEACHER Video Visit [facility] - SNOW REMOVAL SUPERVISOR [address] [place] [phone] Lluvia Bonner MD [address] [place] [address] 11/20/2025 11:20 AM EDUCATIONAL ASSISTANT TEACHER Office Visit [facility] - Rheumatology [address] [place] [address] Carmen Carlton MD [address] [place] [address] 12/05/2025 10:10 AM EDUCATIONAL ASSISTANT TEACHER Office Visit [facility] - SNOW REMOVAL SUPERVISOR [address] [place] [phone] Jerri Bhat MD [address] [place] [address] documented as of this encounter Visit Diagnoses Diagnosis Histone antibody positive Trochanteric bursitis, left hip Sicca syndrome (HCC) Sicca syndrome documented in this encounter Care Teams Cut Lace Machine Operator Relationship Specialty Start Date End Date Tim Harris MD [facility] [place] [address] PCP - General Family Medicine 11/26/16 documented as of this encounter
[2025-05-24 16:57] VITALS: BMI 21.7
--- NOTE | 2025-05-24 17:23 | PC.NURSE ---
Report to the Outpatient Waiting Room, entrance under the green pavilion located off [facility], at time __06__ on date ___05/31/25___. Planned Procedure Time: __814__.? Time changes happen often and if your time is changed the preop area will call you the afternoon before. - You and your visitor will be asked to self-screen and do not enter if you have any COVID symptoms. Please call surgeon if you need to reschedule. - A mask is optional within the hospital at this time. NPO for 8 hours prior to surgery Take only the following medications with a SIP of water on the morning of surgery: ___gabapentin, imipramine___ DO NOT STOP ANY OF YOUR OTHER PRESCRIPTION MEDICATIONS PRIOR TO SURGERY EXCEPT THE FOLLOWING Hold all vitamins and supplements for 3 days per anesthesiologist. Medications to discontinue per physician HOLD lisinopril the morning of procedure Please no make-up, nail welsh, hairspray, perfume, deodorant, or body powder the day of surgery.? No jewelry (including any body piercings) or valuables the day of surgery, leave them at home.? Please take a shower or bath the night before, or the morning of, surgery with an antibacterial soap.? Wear comfortable, loose fitting clothing.? - Jewelry must be removed prior to entering the operating room.? Rings and piercings that are not removed may be cut off. - The hospital will not accept responsibility for valuables.? - Please leave all valuables, including medications, at home the day of surgery. If you are going home after surgery, a licensed grab driver must drive you home.? - NO public transportation without another adult if you receive anesthesia. - We recommend that an adult stay with you for 24 hours following discharge. - We also recommend that you do not drive, make important decision, drink alcoholic beverages, or take any drugs that were not prescribed by your health care provider for at least 24 hours after your discharge time. Follow any additional instructions given to you from your surgeon. Telephone instructions given to ___Ann___and asked if any additional questions and then verbalized understanding. Patient advised to call surgeon office or pre surgery nurse liaison [phone] if any additional questions.
--- OUTSIDE RECORDS SUMMARY | 2025-05-31 00:34 | XMS_ITS | Clinical Summary ---
Author Organization [facility] [address] Address [address] [place] [address] Care Team Providers Care Bakeshop Cleaner Name Role Phone Tim Harris MD Primary Care Provider [phone] Allergies Active Allergy Reactions Criticality Noted Date [...] on file Legal Sex Female 12:29 AM CHILD'S NURSE Gender Identity Not on file Sexual Orientation [...] on file Insurance AN[employer] Care Teams Bakeshop Cleaner Relationship Specialty Start Date End Date Tim Harris MD PCP - General Family Medicine 03/18/18
--- OUTSIDE RECORDS SUMMARY | 2025-05-31 00:34 | XMS_ITS | Encounter Summary ---
Author Organization [facility] Health Address [address] [facility] [place] [address] Care Team Providers Care Flooring Installer Name Role Phone Tim Harris MD Primary Care Provider [phone]- [phone] Carmen Carlton MD Unavailable [phone] Reason for Visit * Reason Onset Date Comments MEDICATION REFILL 12/13/2019 Encounter Details Date Type Department Care Team (Late st Contact Info) Description 12/13/2019 Refill [facility] [address] [place], [place] [phone] Carmen Carlton MD [address] [place] [address] MEDICATION REFILL Social History Tobacco Use Types Packs/Day Years Used Date Smoking Tobacco: Never Smokeless Tobacco: Never Alcohol Use Standard Drinks/Week Comments Yes 1 (1 standard drink = 0.6 oz pur e alcohol) Comments No Sex and Gender Information Value Date Recorded Sex Assigned at Not on file Legal Sex Female 3:21 PM PREFABRICATOR Gender Identity Not on file Sexual Orientation Not on file documented as of this encounter Functional Status * Is person deaf or have serious hearing difficulty? Answer Date of Assessment Author No 11/27/2016 7:24 AM Cady Aguilar RN * Is person blind or have serious difficulty seeing? Answer Date of Assessment Author No 11/27/2016 7:24 AM Cady Aguilar RN * Does person have serious difficulty walking/climbing stairs? Answer Date of Assessment Author No 11/27/2016 7:24 AM Cady Aguilar RN * Does person have difficulty dressing/bathing? Answer Date of Assessment Author No 11/27/2016 7:24 AM Cady Aguilar RN * Does person have difficulty doing errands alone? Answer Date of Assessment Author No 11/27/2016 7:24 AM Cady Aguilar RN documented as of this encounter Mental Status * Does person have difficulty concentrating/remembering/making decisions? Answer Entry Date Author No 11/27/2016 7:24 AM Cady Aguilar RN documented in this encounter Plan of Treatment Upcoming Encounters Date Type Department Care Team (Late st Contact Info) Description 11/20/2025 11:20 AM PREFABRICATOR Office Visit [facility] - Rheumatology [facility] [place] [phone] Carmen Cartlon MD [address] [place] [phone] 12/05/2025 10:10 AM PREFABRICATOR Office Visit [facility] - PROCESS TECH [address] [facility] [address] [place] [address] Jerri Bhat MD [address] [facility] [address] [place] [address] documented as of this encounter Visit Diagnoses Diagnosis Histone antibody positive Trochanteric bursitis, left hip Sicca syndrome (HCC) Sicca syndrome documented in this encounter Care Teams Flooring Installer Relationship Specialty Start Date End Date Tim Harris MD [address] [place] [phone] PCP - General Family Medicine 11/26/16 Carmen Carlton MD [address] [place] [address] Cruise Consultant Rheumatology 05/26/25 documented as of this encounter
--- OUTSIDE RECORDS SUMMARY | 2025-05-31 00:34 | XMS_ITS | Referral Summary ---
Author Organization [facility] [place] [address] Address [address] [place] [address] Care Team Providers Care Human Resources Officer Name Role Phone Tim Harris MD Primary Care Provider [phone] Allergies Active Allergy Reactions Criticality Noted Date [...] on file Legal Sex Female 12:29 AM CLAMSHELL ENGINEER Gender Identity Not on file Sexual [...] on file Insurance [employer] Care Teams Human Resources Officer Relationship Specialty Start Date End Date Tim Harris MD PCP - General Family Medicine 03/18/18
--- OUTSIDE RECORDS SUMMARY | 2025-05-31 00:34 | XMS_ITS | Clinical Summary ---
Author Organization [facility] Address [address] [place] [address] Care Team Providers Care Balance Staff Staker Name Role Phone Ric Romero MD Primary Care Provider [phone] Social History Tobacco Use Types Packs/Day Years [...] Screening with HPV 1991 Mammogram Screening 2001 Pneumococcal Vaccine: 50+ Ye ars (1 of 1 - PCV) 2011 Zoster Vaccines (1 of 2) 2011 COVID-19 Vaccine ( - 2023-2 5 season) 2024 RSV Immunization or 60+ Years (1 [...] patient's age to complete this topic Insurance [facility] Care Teams Balance Staff Staker Relationship Specialty [place] [address] [place] [address] PCP - General HEMATOLOGY/ONCOLOGY 07/09/21
--- OUTSIDE RECORDS SUMMARY | 2025-05-31 00:34 | XMS_ITS | Clinical Summary ---
Author Organization [facility] Address [address] [place] [address] Phone Care Team Providers Care Water Resource Agent Name Role Phone Tim Harris MD Primary Care Provider [phone] Allergies Active Allergy Reactions Criticality Noted Date Comments Codeine Unknown 09/06/2015 Adhesive Tape Rash Medium 10/17/2015 Hydrocod Wolf-Chlorphe Wolf Er Hallucinations 1 12/18/2014 Midazolam Unknown 09/06/2015 Medications imipramine (TOFRANIL) 10 MG Tablet Take 30 mg by mouth nightly. 08/17/2015 Active pilocarpine (SALAGEN) 5 MG Tablet 08/30/2015 Active Multiple Vitamin Tablet Take by mouth. Active [place]-3 Fatty Acids (FISH OIL) 600 MG Capsule [...] Virus (HCV) Screening 1961 TdaP Immunization 1961 Pap Smear 1982 Cervical Cancer Screening (CCS) 1991 HPV/Cotest 1991 Cologuard 2006 Colonoscopy 2006 Colorectal Cancer Screening 2006 Immunochemical Fecal Occult Blood 2006 Pneumococcal Immunization (50+ years) (1 of 1 - PCV) 2011 Zoster Immunization (1 of 2) 2011 SARS-COV-2 Immunization ( - 2023-25 season) 2024 Influenza Immunization (#1) 2025 Respiratory Syncytial Virus (RSV) Immunization (Adult) (1 - 1-dose 75+ series) 2036 Mammogram Discontinued 07/25/2021, 07/03, 04/04/2019, Additional history exists Hepatitis B Immunization Aged Out No longer eligible based on patient's age to complete this topic Human Papillomavirus (HPV) Immunization Aged Out No longer eligible based [...] Most Recently Relevant to Health Maintenance Insurance [facility] Care Teams Water Resource Agent Relationship Specialty Start Date End Date Tim Harris MD [address] [place] [address] [address] [place] [address] PCP - General Family Medicine 09/06/15
--- OUTSIDE RECORDS SUMMARY | 2025-05-31 00:34 | XMS_ITS | Clinical Summary ---
Author Organization [facility] Address [address] [place] [address] Care Team Providers Care Flame Hardener Name Role Phone Tim Harris MD Primary Care Provider [phone]- [phone] Carmen Carlton MD Unavailable [phone] Source Comments [facility],non-owned Affiliates and Associated Physician Practices is amultiple site organization consisting of ambulatory clinics and hospital sitesin [place], [place], [place] and [place]. This disclosure is being madepursuant to the Care Everywhere program and may not contain all information available regarding this patient. Last updated 18.[facility] Allergies Active Allergy Reactions Criticality Noted Date Comments Adhesive Sensitivity Rash Medium 08/12/2016 Codeine Nausea and/or Vomiting Low 08/12/2016 Hydrocod Polst-Cpm Polst Er Psychiatric Medium 015 Midazolam Nausea and/or Vomiting Low 08/12/2016 Tussionex Pennkinetic Er Unknown 03/18/2018 Medications * Be aware that medications may not be up to date on this document. Alwaysverify current medications with the patient. Calcium-Magnesi um-Zinc 167-83-8 MG Take 1 tablet by mouth every other day Active albuterol HFA (PROVENTIL;VENT ABHISHEK;PROAIR) 108 (90 BASE) MCG/ACT inhaler Inhale 2 (two) puffs by mouth as needed Active Cyanocobalamin (VITAMIN B 12) 100 MCG Take 1 tablet by mouth every other day Active Multiple Vitamin Take 1 (one) tablet by mouth every other day Active Probiotic Product (ACIDOPHILUS/GO AT MILK) CAPS Take 1 tablet by mouth Active lisinopril (PRINIVIL; ZESTRIL) 2.5 MG tablet Take 1 (one) tablet by mouth once daily 01/28/20 19 Active amLODIPine (NORVASC) 2.5 MG tablet Take 1 (one) tablet by mouth at bedtime 11/08/19 20 Active estradiol (ESTRACE VAGINAL) 0.1 MG/GM vaginal cream Please compound 0.15 mg/g estradiol vagina cream in a versa base. Patient to use a pea size amount to urethra 3 x week 45 g 1 04/27/20 20 Active pantoprazole EC (PROTONIX) 40 MG tablet 07/27/20 21 Active gabapentin (NEURONTIN) 100 MG capsuleIndicati ons:Vulvodynia TAKE 3 (THREE) CAPSULES BY MOUTH AT BEDTIME 90 capsule 03/03/20 22 Active PEPPERMINT OIL PO Active imipramine (Tofranil) 10 MG tablet Take 4 (four) tablets by mouth at bedtime Active pilocarpine HCl (Salagen) 5 MG tablet Take 1 (one) tablet by mouth 3 times daily 270 tablet 1 04/22/20 24 Active magnesium gluconate 500 (27 Mg) MG tablet Take 1 (one) tablet by mouth once daily Active cranberry (Cranberry) 400 MG tablet Take 1 (one) tablet by mouth once daily Active meloxicam (Mobic) 15 MG tabletIndicatio ns:Histone antibody positive,Sicca syndrome (HCC),Encounter for therapeutic drug monitoring,Enco unter for long-term (current) use of high-risk medication,Fibr omyalgia TAKE 1 TABLET BY MOUTH EVERY DAY NEEDED 30 tablet 05/26/20 25 Active meloxicam (Mobic) 15 MG tabletIndicatio ns:Histone antibody positive,Sicca syndrome (HCC),Encounter for therapeutic drug monitoring,Enco unter for long-term (current) use of high-risk medication,Fibr omyalgia TAKE 1 TABLET BY MOUTH ONCE DAILY NEEDED 30 tablet 5 11/10/19 25 025 Discontinued Active Problems Problem Noted Date Diagnosed Date Dysuria 09/01/2024 Assessment & Plan (01/04/2025 12:47 PM EDGE RUNNER): - resolved as of 09/27/2024. Denies current symptoms of urinary tract infection on 01/04/2025 . Generalized malaise and flu-like symptoms have resolved as well. Assessment & Plan (09/27/2024 11:59 AM EDGE RUNNER): - resolved as of 09/27/2024. Denies current [...] patient. 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 Visually reviewed report of CT A/P in clinic off patient's phone and kidneys appeared normal. Therefore, no need for renal US at this time. - Cr 0.75 (11/16/24) - recommended completion of urodynamics and cystoscopy with plan for CIC teaching at that appointment if PVR remained elevated. However, pt expressed reluctance to complete extensive workup. As of 01/04/2025, she was amenable to having PVR retested at C (had virtual visit on 01/04/2025) - previously discussed potential harm that chronically elevated PVRs pose. Pt stated understanding. - after counseling and discussion on management options, patient desires to follow up in 6 months in person for repeat PVR. Discussed how preference would entail sooner follow up, but pt stated reluctance to exacerbate her currently well controlled chronic pain symptoms. - follow up 6 months with repeat PVR at that time. If PVR remains elevated, would plan for CIC teaching at that time as well as pursuing urodynamics and cystoscopy if pt open to this. 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 Visually [...] up in 1 month via telehealth to [facility] once she has had time to think [...] steps. 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 Ellis Assessment & Plan (09/27/2024 11:56 AM EDGE RUNNER): - on gabapentin and imipramine H/O keratoconjunctivitis sicca in Sjogren's synd ghislaine 08/31/2017 Resolved Problems Problem Noted Date Diagnosed Date Resolved Date Encounter for long-term (cur rent) use of other medications 01/24/2019 09/21/2023 Encounter for therapeutic drug monitoring 01/24/2019 09/21/2023 Encounters Date Type Department Care Team Description 05/26/2025 Refill [facility] - Rheumatology [address] [place] [address] Carmen Carlton MD Refill Request from Last 3 Months Immunizations Immunization Administration Dates Next Due INFLUENZA VACCINE, TRIV. [...] Date Recorded Patient Health Questionnaire-2 Score 0 01/03/2025 Comments No Sex and Gender Information Value Date Recorded Sex Assigned at Not on file Legal Sex Female 3:21 PM EDGE RUNNER Gender Identity Not on file Sexual Orientation Not on file Last Filed Vital Signs Vital Sign Reading Time Taken Comments Blood Pressure 122/74 11/30/2024 10:16 AM EDGE RUNNER Pulse 94 11/30/2024 10:16 AM EDGE RUNNER Temperature 36.6 C (97.8 F) 11/21/2024 10:56 AM EDGE RUNNER Respiratory Rate 16 09/02/2021 11:34 AM CDT Oxygen Saturation 99% 11/30/2024 10:16 AM EDGE RUNNER Inhaled Oxygen Concentration - - Weight 54.2 kg (119 lb 6.4 oz) 11/30/2024 10:16 AM EDGE RUNNER Height 154.9 cm (5' 1) 11/30/2024 10:16 AM EDGE RUNNER Body Mass Index 22.56 11/30/2024 10:16 AM EDGE RUNNER Plan of Treatment Upcoming Encounters Date Type Department Care Team (Late st Contact Info) Description 11/20/2025 11:20 AM EDGE RUNNER Office Visit [facility] - Rheumatology [address] [place] [phone] Carmen Carlton MD [address] [place] [phone] 12/05/2025 10:10 AM EDGE RUNNER Office Visit [facility] - LIVE TRUCK OPERATOR [address] [place] [phone] Jerri Bhat MD [address] [place] [address] Health Maintenance Due Date Last Done Comments COLOGUARD (AGES 45-75) - COLON CA SCREENING 1961 [...] season) 2024 06/13/2021, 05/16/2021 INFLUENZA VACCINE (#1) 2025 0, 08/02/2018, 07/18/2013 PAP with HPV 07/10/2025 07/10/2020 [...] complete this topic MENINGOCOCCAL (Group B) VACCINE SHARED DECISION-MAKING Aged Out No longer eligible based on patient's age to complete this topic MENINGOCOCCAL GROUPS A/C/Y/W VACCINE Aged Out No longer eligible based on patient's age to complete this topic Procedures Procedure Name Priority Date/Time Associated Diagnosis Comments HPV DETECTION HIGH RISK VAN Routine 07/10/2020 4:11 PM CDT Well woman exam with routine gynecological exam HEPATITIS C REAL-TIME PCR QUANTASURE Routine 09/11/2017 4:06 PM EDGE RUNNER from Last 3 Months or Most Recently Relevant to Health Maintenance Results * HPV DETECTION HIGH RISK VAN (07/10/2020 [...] (cytology, histology, and clinical information). Rebecca Box [facility]SIDE [facility] - MICROBIOLOGY ORDERABLES Final Result [facility] [address] [phone] * HEPATITIS C REAL-TIME PCR QUANTASURE (09/11/2017 4:06 PM EDGE RUNNER) Hepatitis C Virus RNA PCR Quantitative <15 NOT DETECTED <15 IU/mL [facility]) Hepatitis C Virus RNA Log IU/mL <1.18 NOT DETECTED <1.18 Log IU/mL [facility] See Note [facility] Comment: The analytical performance characteristics of this assay have been determined by [employer]. The modifications have not been cleared or approved by the FDA. This assay has been validated pursuant to the CLIA regulations and is used for clinical purposes. This test was performed using the JOSE MANUEL(R)AmpliPrep/ JOSE MANUEL(R)TaqMan(R)HCV Test,v2.0. For more information on this test, go to: http://education.Mobile-XL/faq/TKM77q8 (This link is being provided for informational/ educational purposes only.) Test Performed at: [facility] [employer] [address] [address] [place] [address] DENNISE EDGE DO,MPH 09/11/2017 4:06 PM EDGE RUNNER 09/11/2017 4:06 PM EDGE RUNNER us Carmen Carlton MD LAB - SEROLOGY ORDERAB LES Final Result [facility] ([facility]) [address] from Last 3 Months or Most Recently Relevant to Health Maintenance Insurance [employer] SELF PAY NO INSURANCE Member Subscriber Plan / Payer (Ef fective for All Dates) Name:Jasper Dewitt Member ID:Not on file Relation to Subscriber:Not on file Name:JASPER DEWITT Subscriber ID:Not on file (Home) Address: [place] [address] Payer ID:Not on file Group ID:Not on file Type:Self Pay Address: [place], [place] Care Teams Flame Hardener Relationship Specialty Start Date End Date Tim Harris MD [address] [place] [phone] PCP - General Family Medicine 11/26/16 Carmen Carlton MD [address] [place] [address] Director Industrial Relations Rheumatology 05/26/25
[2025-05-31 06:45] VITALS: BP 139/68; PULSE 75; RESP 20; TEMP 36.2; O2SAT 100
--- NOTE | 2025-05-31 06:49 | P.OP_ITS ---
Procedure Note - Detailed Date of Procedure 05/31/25 Pre-op Diagnosis left carpal tunnel syndrome, left cubital tunnel syndrome lipoma left arm Post-op Diagnosis Same Procedure Performed left ectr, left CuTR and left elbow mass excision Surgeon Tank Dumont MD Admission Liaison bakari gary pa-c Anesthesia MAC Description of Procedure INFORMED CONSENT: The patient was seen and examined and marked in the pre-op area.? The patient signed the consent form. PROCEDURE IN DETAIL:The patient taken back to OR on the stretcher in supine position. Time out performed with anesthesia, surgeon and staff agreeing on patient's name site and surgery to be performed SCDs were placed on the lower extremities and inflated. A tourniquet was placed on {left} upper extremity and antibiotics given IV After anesthesia administered sedation I injected {10}cc 1%lido with epi and 0.5% marcaine plain at the operative sites The?{left upper extremity}?was prepped and draped in sterile fashion the??{left upper extremity} was? exsanguinated with Esmarch bandage and tourniquet inflated to 250mmHg I made a transverse incision in the {left} volar distal wrist crease through skin and dermis with 15 blade scalpel.? Littler scissors spread down to antebrachial fascia. A small incision was made in antebrachial fascia allowing access to Carpal tunnel. I proceeded with sequential dilation staying in line with the ring finger and hugging the hook of the hamate.? I then used the synovial elevator to free any adhesions from the underside of the transverse carpal ligament. Next I was able to insert the Microaire endoscopic carpal tunnel device with direct visualization of the transverse fibers on the monitor and proceeded with complete segmental retrograde release of the ligament in its entirety.? I irrigated with normal saline and closed with 4-0 monocryl for dermis and subcuticular closure. I next proceeded with making a longitudinal incision between two heads for flexor carpi ulnaris at end of {left} cubital tunnel with 15 blade scalpel.? Littler scissors were used to spread down to FCU fascia.? An incision was made in FCU fascia and ulnar nerve identified exiting cubital tunnel.? I proceeded with complete retrograde release of the cubital tunnel including 7cm proximal for the intermuscular septum.? The nerve appeared healthy with visible vaso nervorum.? There was no subluxation on full elbow range of motion. ? I irrigated with normal saline and closure with 3-0 Vicryl and 4-0 Monocryl. Next I proceeded with making a longitudinal incision over the left medial elbow mass through skin dermis with 15 blade. Littler scissors used to spread through subcutaneous tissue down to the lipomatous mass. The mass measured 1.5 cm. I proceeded with circumferential dissection around this mass and excised sharply. I irrigated with normal saline. Closure with 3-0 Vicryl and 4-0 Monocryl The incisions were covered with Dermabond then 4x4s, belle, and a posterior elbow and volar wrist splint for patient safety, security and comfort and secured with fidelina bandages after the tourniquet was let down noting the hand was warm and well perfused.? Patient awaken from anesthesia and transferred to recovery in stable condition Complications - none EBL- 1cc Disposition - home in stable condition Bakari Gary PA-C was essential for positioning, retraction, closure and dressing placement G Billing Surgery - Charge Forward: Surgery Billing ([id number] same for bakari adding )
--- NOTE | 2025-05-31 06:49 | WPDHPUPDATE1 ---
History and Physical Update Update Date/Time: 05/31/25 06:49 Patient seen and examined in pre-operative holding area. No interval change in medical history or symptoms. Patient recalls previous discussion of benefits and alternatives to procedure. Continues to desire to proceed with left endoscopic possible open carpal tunnel release, left cubital tunnel release and left elbow mass excision . Reviewed procedure, post-op expectations and risks including but not limited to bleeding, infection, injury to tendon/nerve/vessel, decreased hand function, stiffness, RSD, no change or worsening of symptoms, recurrence. I discussed the possible use of assistants and their participation in the case. Patient stated understanding and signed the consent form wishing to proceed.
[2025-05-31] MEDS: LACTATED RINGERS 1,000 ML 30 ML IV CONT (07:15)
--- NOTE | 2025-05-31 07:57 | WPDANESEPPF ---
Anes - Initial Pre Proc Eval Procedure: Operation Date: 05/31/25 08:15 Proposed Procedures p Left Endoscopic Carpal Tunnel Release, Possible Open, Left Cubital Tunnel Release, - Tank Dumont MD s Excision Lipoma Left Arm - Tank Dumont MD Date/Time: 05/31/25 07:57 Surgeon: Tank Dumont MD Pre Op Diagnosis: left carpal tunnel syndrome, lipoma left arm Patient Data Age: 65 Gender: F Height: 1.55 m Weight: 55.7 kg Last Vital Signs Temp 36.2 C L 05/31/25 06:45 Pulse 75 05/31/25 06:45 Resp 20 05/31/25 06:45 BP 139/68 05/31/25 06:45 Pulse Ox 100 05/31/25 06:45 O2 Del Method Room Air 05/31/25 06:45 Allergies Allergy/AdvReac Type Severity Reaction Status Date / Time codeine AdvReac Mild hallucinati Verified 05/31/25 06:48 on raloxifene AdvReac Mild Nausea Verified 05/31/25 06:48 Home Medications ?Medication ?Instructions ?Recorded ?Confirmed ?Type meloxicam 15 mg tablet 15 mg PO DAILY PRN Pain, Mild 06/21/20 05/31/25 History pilocarpine HCl 5 mg tablet 5 mg PO DAILY PRN Dry Mouth 11/13/22 05/31/25 History lisinopril 2.5 mg tablet 2.5 mg PO DAILY #90 tabs 07/25/24 05/31/25 Rx albuterol sulfate 90 mcg/actuation See Rx Instructions .Route 08/11/24 05/31/25 Rx aerosol inhaler .COMPLEX ##8.5 pantoprazole 40 mg tablet,delayed See Rx Instructions .Route 11/15/24 05/31/25 Rx release .COMPLEX #90 tabs cholecalciferol (vitamin D3) 10 10 mcg PO DAILY 11/17/24 05/31/25 History mcg (400 unit) capsule multivitamin 1 tablet PO DAILY 11/17/24 05/31/25 History zinc citrate 11 mg chewable tablet 11 mg PO PRN PRN as needed 11/17/24 05/31/25 History valacyclovir 1 gram tablet 2,000 mg (2 x 1 gram) PO Q12H #24 12/09/24 05/29/25 Rx (Valtrex) tabs gabapentin 100 mg capsule 300 mg (3 x 100 mg) PO DAILY #90 12/29/24 05/31/25 Rx caps tizanidine 4 mg tablet 4 mg PO TID PRN muscle spasticity 03/08/25 05/31/25 Rx #30 tabs imipramine HCl 10 mg tablet See Rx Instructions .Route 04/28/25 05/31/25 Rx .COMPLEX #360 tabs hydrocodone 5 mg-acetaminophen 325 1 tablet PO Q6H PRN pain #8 tabs 05/31/25 Rx mg tablet Patient hx anesthesia problems: post op nausea/vomiting Family hx anesthesia problems: none Results Review: All pre-operative results and documents have been reviewed as part of the pre-operative evaluation. [facility] Past Medical History Medical History Vasovagal reaction Secondary hypertension Dysuria Osteopenia after menopause Depression Sicca syndrome Hx of migraines COVID-19 Schatzki's ring Endometriosis PONV (postoperative nausea and vomiting) Asthma Hypertension Neuropathy Eosinophilic esophagitis Serrated adenoma of colon Atypical ductal hyperplasia of breast Injury of left rotator cuff Orthostasis Fibroadenosis of breast Fibromyalgia Surgical History Surgical History History of carpal tunnel surgery History of removal of cyst 2003 Bronchogenic cyst removed S/P dilatation of esophageal stricture Family History Family History Father , age 93 Hypertension Diabetes mellitus Mother , age 89 Hypertension Family history of mental disorder Family history of dementia Family history of osteoarthritis Arthritis Sibling Depression Hypertension Sleep apnea Grandparent Diabetes mellitus Family history of malignant neoplasm Other Family history of malignant neoplasm of uterus Social History Social History Social History: Caffeine- coffee daily Smoking status: Never smoker Tobacco type: cigarettes Second hand tobacco smoke exposure: No Alcohol intake: current Drinks per week: 1 Alcohol use details: 1/2 glass wine a week Substance use: never Substance use type: does not use Lack of Transportation: No Lack of Food: Never True Current Housing: I Have Housing Concerned About Future Housing: No Difficulty Paying Gas/Electric Bills: No Difficulty Paying for Meds: No Currently Unemployed: No Education: Bachelor's Degree Difficulty w/ Childcare or Family Care: No Living arrangements: with family Occupation/Education: occupation Gender identity (if verbalized by the patient): Female Spiritual care concerns: No Anes - Eval Final PreProcedure Day of Procedure 05/31/25 07:57 Patient weight: normal Heart: regular rate and rhythm Lungs: clear to auscultation Airway: Mallampati scale class II Neurological: alert and oriented Last oral intake: >/= 8 hours ASA classification: III Emergent: no Anesthetic plan: proceed Anesthesia type and monitoring: general GIVS and standard monitoring Results Review: All pre-operative results and documents have been reviewed as part of the pre-operative evaluation. Informed Consent: The patient's anesthetic plan and its attendant risks and benefits were discussed with the patient/family/POA. Questions were solicited and answers provided to the satisfaction of the patient/family/POA.
[2025-05-31] MEDS: LIDO 1%/EPINEPHRINE 1:100,000 20 ML VIAL 4.5 ML INFILTRATE (08:03)
[2025-05-31] MEDS: ceFAZolin 2 GM in SODIUM CHLORIDE 0.9% IV 50 ML 100 ML IVPB (08:03)
--- NOTE | 2025-05-31 08:23 | S_PTH ---
PATIENT: Edyta Muhammad LOC: [facility] U#:[id number] AGE/SX: 65/F ROOM: RE05/31/[address]: Tank Dumont MD : 1960 BED: DIS: 05/31/2025 SPEC #: [id number] RECD: 05/31/25 10:49 STATUS: PATT REQ #: [id number] DANUTA: 05/31/25 08:[address]: Tank Dumont DEPT: [facility] Surgical RECD BY: Zarina Walker ENTERED: 05/31/25 10:49 SP TYPE: Surgical OTHR DR: Tim Harris MD Tissues: A - Lipoma Procedures: Hematoxylin and Eosin Stain Gross and Microscopic Level 3
[2025-05-31 08:37] VITALS: BP 132/72; PULSE 83; RESP 20; O2SAT 100
[2025-05-31 09:05] VITALS: BP 156/76; PULSE 74
--- NOTE | 2025-05-31 09:11 | SUR.PHASEII ---
RN called Dr. Lewis to ask if patient could use her home inhalers since she feels short of breath.
[2025-05-31 09:35] VITALS: BP 134/72; PULSE 69
[2025-05-31 09:50] VITALS: BP 151/82; PULSE 71
== END 2025-05-31 10:00 | disposition home or self-care (01) ==
PROVIDERS: PCP Family Medicine; Visit Provider Plastic Surgery
PROC: 01N54ZZ Release Median Nerve, Percutaneous Endoscopic Approach (ICD-10-PCS; CPT 29848; principal; 2025-05-31 08:15)
PROC: (CPT 64718; 2025-05-31 08:15)
DX: G56.02 Carpal tunnel syndrome, left upper limb (principal); G56.22 Lesion of ulnar nerve, left upper limb; D17.22 Benign lipomatous neoplasm of skin and subcutaneous tissue of left arm; I10 Essential (primary) hypertension; M79.7 Fibromyalgia; J45.909 Unspecified asthma, uncomplicated; F32.A Depression, unspecified; M35.00 Sjogren syndrome, unspecified; N80.9 Endometriosis, unspecified; G62.9 Polyneuropathy, unspecified; I15.9 Secondary hypertension, unspecified; M85.88 Other specified disorders of bone density and structure, other site; Z79.51 Long term (current) use of inhaled steroids; Z79.891 Long term (current) use of opiate analgesic; Z98.890 Other specified postprocedural states; Z86.0100 Personal history of colon polyps, unspecified; Z87.19 Personal history of other diseases of the digestive system; Z80.49 Family history of malignant neoplasm of other genital organs
CPT/HCPCS: 64718; 29848; 24075; 88304; J0690; J2004; J3010; J7120

== ENCOUNTER 2025-10-13 13:18 | Outpatient (CLI) | payer BC, SELFPAY ==
--- NOTE | 2025-10-13 13:27 | ECG_ITS ---
Test Date: 2025-10-13 13:33:13 Measurements Intervals [place] Rate: 72 P: 70 ID: [id number] QRS: 51 QRSD: 103 T: 47 QT: 388 QTc: 425 Interpretive Statements SINUS RHYTHM POSSIBLE RIGHT ATRIAL ENLARGEMENT POSSIBLE LEFT ATRIAL ENLARGEMENT BASELINE ARTIFACT- I, II, AVR, V1-V3 BORDERLINE ECG No previous ECG available for comparison Electronically Signed On 10-13-2025 13:51:36 BILINGUAL HR GENERALIST by Albert Cardenas D.O.
== END 2025-10-13 13:19 | disposition home or self-care (01) ==
LOC: ANHCARD 13:21
PROVIDERS: PCP Family Medicine; Visit Provider Nurse Anesthetist, Certified Registered
DX: Z01.818 Encounter for other preprocedural examination (principal); R94.31 Abnormal electrocardiogram [ECG] [EKG]
CPT/HCPCS: 93005